=== PATIENT | female | born 1970 | race Hispanic/Latino ===

== ENCOUNTER 2018-05-18 01:08 | Emergency (ER) | payer BC ==
[2018-05-18] MEDS ORDERED: METOPROLOL TAR 50 MG TAB ONE (01:44)
[2018-05-18] MEDS ORDERED: MORPHINE 4 MG/ML SYR ONE (01:44)
[2018-05-18] MEDS ORDERED: ONDANSETRON 4 MG/2 ML VIAL ONE (01:45)
[2018-05-18 02:03] LABS: Absolute Lymphocytes (CBC) 2.7 K/uL (0.7-4.9); Absolute Monocytes 0.6 K/uL (0.1-1.3); Absolute Neutrophil 4.9 K/uL (1.8-8.0); Basophils % 0.3 % (0-1.3); Eosinophils % 1.8 % (0-4.4); Hematocrit 36.8 % (36.0-45.0); Lymphocytes % 32.1 % (15.3-44.8); MCH 30.1 pg (27.0-35.0); MCV 85.6 fL (80-100); MPV 8.8 fL (7.6-11.3); Monocytes % 7.3 % (3.3-12.3); RBC Red Blood Cell Count 4.31 M/uL (3.86-4.86)
[2018-05-18 02:18] LABS: BUN Blood Urea Nitrogen 10 mg/dL (7-18); Bicarbonate 27 mmol/L (21-32); Glucose Level 85 mg/dL (74-106); Potassium 3.5 mmol/L (3.5-5.1); Sodium Level 140 mmol/L (136-145)
[2018-05-18 02:26] LABS: Urine Blood 1+ (NEG); Urine Glucose NEGATIVE (NEG); Urine Protein NEGATIVE (NEG); Urine Specific Gravity 1.015 (1.005-1.030)
[2018-05-18] MEDS ORDERED: NA CHLORIDE 0.9% 1,000 ML ONE (02:41)
[2018-05-18] MEDS ORDERED: KETOROLAC 30 MG/ML INJ ONE (02:41)
[2018-05-18] MEDS ORDERED: DIPHENHYDRAMINE 50 MG/ML VIAL ONE (02:41)
--- NOTE | 2018-05-18 04:38 | ER ---
Nurse's Notes [facility] Name: La Mata Age: 47 yrs Sex: Female : 1970 Arrival Date: 05/18/2018 Time: 01:12 Bed 7 Private MD: Josee Porter R Diagnosis: Headache;Hypertensive heart disease Presentation: 05/18 01:24 Presenting complaint: Patient states: she has been having a headache since April 21 she bb saw her PCP and was given ibuprofen 800 mg, fluticasone spray, amox/swati 500/125 but she does not know why. Pt's headache is worse, arms feel numb today. Transition of care: patient was not received from another setting of care. Onset of symptoms was April 21, 2018. Risk Assessment: Do you want to hurt yourself or someone else? Patient reports no desire to harm self or others. Initial Sepsis Screen: Does the patient meet any 2 criteria? No. Patient's initial sepsis screen is negative. Does the patient have a suspected source of infection? No. Patient's initial sepsis screen is negative. Care prior to arrival: None. 01:24 Method Of Arrival: Ambulatory bb 01:24 Acuity: [place] 2 bb Triage Assessment: 01:27 Headache History: Denies prior headaches. bb 01:43 Pain: Pain began 1 day ago. tl2 05:00 General: Appears uncomfortable. Pain: Also complains of nausea. 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 - Social history:: Smoking status: Patient/guardian denies using tobacco, Patient/guardian denies using alcohol, street drugs. - Ebola Screening: : No symptoms or risks identified at this time. Screenin:40 Abuse screen: Denies threats or abuse. Nutritional screening: No deficits noted. tl2 Tuberculosis screening: No symptoms or risk factors identified. Fall Risk None identified. Assessment: 01:40 General: Appears in no apparent distress. uncomfortable, Behavior is calm, cooperative, tl2 appropriate for age. Pain: Complains of pain in top of head Pain radiates to base of the skull Pain currently is 9 out of 10 on a pain scale. Quality of pain is described as throbbing, numb. Neuro: Level of Consciousness is awake, alert, obeys commands, Oriented to person, place, time, situation, Fare Collector are equal bilaterally Speech is normal, Facial symmetry appears normal, Pupils are PERRLA, Reports numbness in right hand and left hand Denies blurred vision dizziness. Cardiovascular: Denies chest pain. Respiratory: Airway is patent Respiratory effort is even, unlabored, Respiratory pattern is regular, symmetrical. GI: Reports nausea. : No signs and/or symptoms were reported regarding the genitourinary system. Derm: Skin is pink, warm \T\ dry. 05:00 Reassessment: Patient and/or family updated on plan of care and expected duration. Pain tl1 level reassessed. Patient is alert, oriented x 3, equal unlabored respirations, skin warm/dry/pink. Patient denies pain at this time. Patient states feeling better. Patient states symptoms have improved. Vital Signs: 01:27 BP 197 / 99; Pulse 76; Resp 18 S; Temp 97.8(O); Pulse Ox 99% on R/A; Weight 67.13 kg bb (R); Height 5 ft. 5 in. (165.10 cm) (R); Pain 10/10; 02:43 BP 170 / 105; Pulse 59; Resp 17; Pulse Ox 100% ; Pain 7/10; tl1 03:39 BP 162 / 88; Pulse 61; Resp 18; Pulse Ox 99% on R/A; tl2 04:34 BP 120 / 79; Pulse 52; Resp 16; Pulse Ox 99% on R/A; Pain 0/10; tl2 01:27 Body Mass Index 24.63 (67.13 kg, 165.10 cm) bb ED Course: 01:12 Patient arrived in ED. al2 01:12 Josee Porter MD is Private Physician. al2 01:26 Triage completed. bb 01:27 Arm band placed on Patient placed in an exam room, on a stretcher, on pulse oximetry. bb Family accompanied patient. 01:31 Kip Gordon MD is Attending Physician. kdr 01:40 Brenda Salamanca RN is Primary Nurse. tl2 01:40 Patient has correct armband on for positive identification. Bed in low position. Call tl2 light in reach. Side rails up X 1. Adult w/ patient. 01:40 Inserted saline lock: 20 gauge in left antecubital area, using aseptic technique. Blood tl2 collected. 02:[address] via wheelchair. kw1 02:20 CT completed. Patient tolerated procedure well. Patient moved back from CT. kw1 02:22 CT Head Brain wo Cont In Process Unspecified. EDMS 04:37 Josee Porter MD is Referral Physician. kdr 05:00 No provider procedures requiring assistance completed. IV discontinued, intact, tl1 bleeding controlled, No redness/swelling at site. Pressure dressing applied. Administered Medications: 01:43 Drug: Lopressor (metoprolol TARTRATE) 50 mg Route: PO; tl2 04:02 Follow up: Response: No adverse reaction tl2 01:45 Drug: morphine 2 mg Route: IVP; Site: left antecubital; tl2 02:30 Follow up: Response: No adverse reaction; Pain is decreased tl2 01:45 Drug: Zofran 4 mg Route: IVP; Site: left antecubital; tl2 02:30 Follow up: Response: No adverse reaction; Nausea is decreased tl2 02:42 Drug: Benadryl 25 mg Route: IVP; Infused Over: 3 mins; Site: left antecubital; tl1 04:04 Follow up: Response: No adverse reaction tl2 02:42 Drug: NS 0.9% 1000 ml Route: IV; Rate: 1 bolus; Site: left antecubital; tl1 04:05 Follow up: IV Status: Completed infusion tl2 04:59 Follow up: IV Status: Completed infusion tl1 02:43 Drug: TORadol 30 mg Route: IVP; Infused Over: 2 mins; Site: left antecubital; tl1 04:04 Follow up: Response: No adverse reaction; Pain is decreased tl2 Outcome: 04:37 Discharge ordered by . kdr 04:59 Discharged to home ambulatory, with family. tl1 04:59 Condition: improved 04:59 Discharge instructions given to patient, family, Instructed on discharge instructions, follow up and referral plans. medication usage, Demonstrated understanding of instructions, follow-up care, medications, Prescriptions given X 2. 05:01 Patient left the ED. tl1 Signatures: Dispatcher [employer] EDMS Kip Gordon MD MD kdr Ballard, Brenda RN RN Viky Walker RN RN tl1 Brenda Salamanca RN RN tl2 Pooja Nettles1 Milagro Lawson
--- NOTE | 2018-05-18 04:38 | EDPHYS ---
Physician Documentation [facility] Name: La Mata Age: 47 yrs Sex: Female : 1970 Arrival Date: 05/18/2018 Time: 01:12 Bed 7 Private MD: Josee Porter R ED Physician Kip Gordon HPI: 05/18 01:40 This 47 yrs old Female presents to ER via Ambulatory with complaints of kdr Headache. 01:40 The patient complains of pain to the right frontal area, right side of the back of kdr head, right occipital area and right base of the skull. The patient describes the headache as aching, unrelenting, Sharp. Onset: The symptoms/episode began/occurred Has been ongoing and wax/wane for the last month or more but now much worse. It remains focal to the right apical parietal area with radiation down the right posterior head. Associated signs and symptoms: Pertinent positives: This patient does not have any pertinent positive signs or symptoms associated with a headache. Pertinent negatives: altered mental status, dizziness, fever, malaise, nausea, neck stiffness, paresthesias, Photophobia rash, sinus congestion, sinus tenderness, vision changes, vision loss, vomiting, weakness, vertigo. Severity of symptoms: At its worst the pain was moderate, in the emergency department the pain is unchanged. Headache History: The patient has had previous headaches and this one is similar to previous episodes, and this one is more severe than previous episodes. The symptoms are alleviated by nothing. the symptoms are aggravated by nothing. The patient has experienced similar episodes in the past, a few times, but today's symptoms are worse, more painful. The patient has not recently seen a physician. 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 - Social history:: Smoking status: Patient/guardian denies using tobacco, Patient/guardian denies using alcohol, street drugs. - Ebola Screening: : No symptoms or risks identified at this time. ROS: 01:40 Constitutional: Negative for fever, chills, and weight loss, Eyes: Negative for injury, kdr pain, redness, and discharge, Neck: Negative for injury, pain, and swelling, Cardiovascular: Negative for chest pain, palpitations, and edema, Respiratory: Negative for shortness of breath, cough, wheezing, and pleuritic chest pain, Abdomen/GI: Negative for abdominal pain, nausea, vomiting, diarrhea, and constipation, Back: Negative for injury and pain, : Negative for injury, bleeding, discharge, and swelling, MS/Extremity: Negative for injury and deformity, Skin: Negative for injury, rash, and discoloration, Psych: Negative for depression, anxiety, suicide ideation, homicidal ideation, and hallucinations, Allergy/Immunology: Negative for hives, rash, and allergies, Endocrine: Negative for neck swelling, polydipsia, polyuria, polyphagia, and marked weight changes, Hematologic/Lymphatic: Negative for swollen nodes, abnormal bleeding, and unusual bruising. 01:40 Neuro: Positive for headache, Negative for altered mental status, dizziness, hearing loss, loss of consciousness, numbness, seizure activity, speech changes, syncope, near syncope, tingling, tinnitus, tremor, visual changes, weakness. Exam: 01:40 Constitutional: This is a well developed, well nourished patient who is awake, alert, kdr and in no acute distress. Head/Face: Normocephalic, atraumatic. Eyes: Pupils equal round and reactive to light, extra-ocular motions intact. Lids and lashes normal. Conjunctiva and sclera are non-icteric and not injected. Cornea within normal limits. Periorbital areas with no swelling, redness, or edema. Neck: Trachea midline, no thyromegaly or masses palpated, and no cervical lymphadenopathy. Supple, full range of motion without nuchal rigidity, or vertebral point tenderness. No Meningismus. Chest/axilla: Normal chest wall appearance and motion. Nontender with no deformity. No lesions are appreciated. Cardiovascular: Regular rate and rhythm with a normal S1 and S2. No gallops, murmurs, or rubs. Normal PMI, no JVD. No pulse deficits. Respiratory: Lungs have equal breath sounds bilaterally, clear to auscultation and percussion. No rales, rhonchi or wheezes noted. No increased work of breathing, no retractions or nasal flaring. Abdomen/GI: Soft, non-tender, with normal bowel sounds. No distension or tympany. No guarding or rebound. No evidence of tenderness throughout. Back: No spinal tenderness. No costovertebral tenderness. Full range of motion. Skin: Warm, dry with normal turgor. Normal color with no rashes, no lesions, and no evidence of cellulitis. MS/ Extremity: Pulses equal, no cyanosis. Neurovascular intact. Full, normal range of motion. Neuro: Awake and alert, GCS 15, oriented to person, place, time, and situation. Cranial nerves II-XII grossly intact. Motor strength 5/5 in all extremities. Sensory grossly intact. Cerebellar exam normal. Normal gait. Psych: Awake, alert, with orientation to person, place and time. Behavior, mood, and affect are within normal limits. Vital Signs: 01:27 BP 197 / 99; Pulse 76; Resp 18 S; Temp 97.8(O); Pulse Ox 99% on R/A; Weight 67.13 kg bb (R); Height 5 ft. 5 in. (165.10 cm) (R); Pain 10/10; 02:43 BP 170 / 105; Pulse 59; Resp 17; Pulse Ox 100% ; Pain 7/10; tl1 03:39 BP 162 / 88; Pulse 61; Resp 18; Pulse Ox 99% on R/A; tl2 04:34 BP 120 / 79; Pulse 52; Resp 16; Pulse Ox 99% on R/A; Pain 0/10; tl2 01:27 Body Mass Index 24.63 (67.13 kg, 165.10 cm) MDM: 01:40 Data reviewed: vital signs, nurses notes, lab test result(s), radiologic studies. kdr Counseling: I had a detailed discussion with the patient and/or guardian regarding: the historical points, exam findings, and any diagnostic results supporting the discharge/admit diagnosis, lab results, radiology results, the need for outpatient follow up. 04:36 ED course: Headache resolved and BP much improved. kdr 04:37 Patient medically screened. kdr 05/18 01:38 Order name: CBC with Diff kdr 05/18 01:38 Order name: Chem 7 kdr 05/18 01:38 Order name: CBC with Automated Diff; Complete Time: 02:38 EDMS 05/18 01:38 Order name: Basic Metabolic Panel; Complete Time: 02:38 EDMS 05/18 02:07 Order name: Urine Dipstick--Ancillary (enter results); Complete Time: 02:38 rg2 05/18 02:07 Order name: Urine --Ancillary (enter results); Complete Time: 02:38 rg2 05/18 01:38 Order name: Urine Dipstick-Ancillary (obtain specimen); Complete Time: 02:03 kdr 05/18 01:38 Order name: CT Head Brain wo Cont kdr 05/18 01:38 Order name: Urine Test (obtain specimen); Complete Time: 02:03 kdr Administered Medications: 01:43 Drug: Lopressor (metoprolol TARTRATE) 50 mg Route: PO; tl2 04:02 Follow up: Response: No adverse reaction tl2 01:45 Drug: morphine 2 mg Route: IVP; Site: left antecubital; tl2 02:30 Follow up: Response: No adverse reaction; Pain is decreased tl2 01:45 Drug: Zofran 4 mg Route: IVP; Site: left antecubital; tl2 02:30 Follow up: Response: No adverse reaction; Nausea is decreased tl2 02:42 Drug: Benadryl 25 mg Route: IVP; Infused Over: 3 mins; Site: left antecubital; tl1 04:04 Follow up: Response: No adverse reaction tl2 02:42 Drug: NS 0.9% 1000 ml Route: IV; Rate: 1 bolus; Site: left antecubital; tl1 04:05 Follow up: IV Status: Completed infusion tl2 04:59 Follow up: IV Status: Completed infusion tl1 02:43 Drug: TORadol 30 mg Route: IVP; Infused Over: 2 mins; Site: left antecubital; tl1 04:04 Follow up: Response: No adverse reaction; Pain is decreased tl2 Disposition: 05/18/18 04:37 Discharged to Home. Impression: Headache, Hypertensive heart disease. - Condition is Stable. - Discharge Instructions: Hypertension, Zxsj-vy-Yxgy, General Headache Without Cause, Sibv-co-Vodc. - Prescriptions for ketorolac 10 mg Oral tablet - take 1 tablet by ORAL route every 4-6 hours As needed not to exceed 40 mg in 24hrs; 10 tablet. promethazine 25 mg Oral Tablet - take 1 tablet by ORAL route every 6 hours As needed; 10 tablet. - Medication Reconciliation Form, Thank You Letter form. - Follow up: Josee Porter MD; When: 2 - 3 days; Reason: If symptoms return, Further diagnostic work-up, Recheck today's complaints, Continuance of care, Re-evaluation by your physician. - Problem is an acute exacerbation. - Symptoms are resolved. Signatures: Dispatcher [employer] EDMS Kip Gordon MD MD kdr Ballard, Brenda, RN RN Viky Walker RN RN tl1 Brenda Salamanca RN RN tl2 Corrections: (The following items were deleted from the chart) 05:01 04:37 05/18/2018 04:37 Discharged to Home. Impression: Headache; Hypertensive heart tl1 disease. Condition is Stable. Forms are Medication Reconciliation Form, Thank You Letter, Antibiotic Education, Prescription Opioid Use. Follow up: Josee Porter; When: 2 - 3 days; Reason: If symptoms return, Further diagnostic work-up, Recheck today's complaints, Continuance of care, Re-evaluation by your physician. Problem is an acute exacerbation. Symptoms are resolved. kdr
--- NOTE | 2018-05-18 08:59 | RAD REPORT ---
EXAM DESCRIPTION: CT - Head Brain Wo Cont - 05/18/2018 6:13 am CLINICAL HISTORY: Headache for several weeks. COMPARISON: None. TECHNIQUE: Computed axial tomography of the head was obtained. IV contrast was not requested.A preli minary report was generated by [employer] and reviewed prior to this dictation All CT scans are performed using dose optimization technique as appropriate and may include automated exposure control or mA/KV adjustment according to patient size. FINDINGS: An intracranial bleed is not seen . The ventricles are normal in caliber. No extra-axial fluid collection is noted. Fluid within the sinuses/ mastoids is not seen. IMPRESSION: No acute intracranial abnormality is seen. If patient's symptoms persist MRI of the bra in would be recommended.
== END 2018-05-18 05:01 | disposition home or self-care (01) ==
LOC: ER 01:08
DX: I11.9 Hypertensive heart disease without heart failure (principal)
CPT/HCPCS: 36415; 70450; 80048; 81003; 81025; 85025; 96361; 96374; 96375; 99284; J2405; J7030

== ENCOUNTER 2024-05-02 00:26 | Emergency (ER) | payer OTHER ==
--- OUTSIDE RECORDS SUMMARY | 2024-05-02 00:30 | XMS REPORT | Continuity of Care Document ---
Author Name Unknown Address [address] [place] [address] [facility] thconnect Address 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 Role Phone BIBIANA TRINOARTURDAGO Primary Care Physician Unavailable CHERYL STEWART Attending Clinician Unavailable Cheryl Stewart MD Attending Clinician [phone] Only, Adc Test Attending Clinician Unavailable Osiel Pollock MD Attending Clinician Paulo Chaudhry MD Attending Clinician [phone] Doctor Unassigned, [place] Attending Clinician U navailable Payers Payer Name Policy Type Policy Number Effective Date Expirati on Date Source [facility] [id number] 2020 00:00:00 [facility] [id number] 2017 00:00:00 Allergies, Adverse Reactions, Alerts Allergy Name Allergy Type Status Severity Reaction(s) Onset Date Inactive Date Treating Clinician Comments Source NO KNOWN ALLERGIE S Drug Class Active [facility] Social History Social Habit Start Date Stop Date Quantity Comments Source History SDOH Alcohol Std Drinks [facility] History SDOH Alcohol Binge [facility] History SDOH Alcohol Comment [facility] Tobacco use and exposure 2020-10-20 00:00:00 2020-10-20 00:00:00 Never used [facility] Alcohol intake 2020-10-20 00:00:00 2020-10-20 00:00:00 Lifetime non-drinker (finding) [facility] History SDOH Alcohol Frequency 2020-10-20 00:00:00 2020-10-20 00:00:00 1 [facility] Sex Ass[birth year] At 1970 00:00:00 1970 00:00:00 [facility] Smoking Status Start Date Stop Date Source Never smoker [facility] Medications Ordered Medication Name Filled Medication Name Start Date Stop Date Current Medication? Ordering Clinician Indication Dosage Frequency Signature (SIG) Comments Components Source Omeprazole 20 mg tablet 2019-11 10:44: 24 Yes Take by mouth. [facility] estradioL 0.01 % (0.1 mg/gram) vaginal cream 2019-11 00:00: 00 Yes [id number] 1g Insert 1 g into vagina daily. After 2 weeks, then can use twice weekly. [facility] loratadine 10 mg tablet 08-03 00:00: 00 Yes 10mg Take 10 mg by mouth daily. [facility] triamterene -hydrochlor othiazid 37.5-25 mg tablet 08-03 00:00: 00 Yes 1{tbl} Take 1 tablet by mouth daily. [facility] Encounters Start Date/Time End Date/Time Encounter Type Admission Type Attending Clinicians Care Facility Care Department Encounter ID Source 2024-02-26 13:58:34 2024-02-26 13:58:34 Outpatient [facility] [id number] Noel Narayanan 2023-11-29 09:11:18 2023-11-29 09:11:18 Outpatient [facility] [id number] Noel Narayanan 2023-02-19 14:43:46 2023-02-19 14:43:46 Outpatient [facility] [id number] Noel Narayanan 2021-10-20 10:30:00 2021-10-20 10:30:00 Outpatient CHERYL PETERSON [facility] [id number] [facility] 2021-10-20 10:30:00 2021-10-20 10:30:00 Outpatient CHERYL PETERSON [facility] [id number] [facility] 2021-09-28 00:00:00 2021-09-28 00:00:00 Telephone Cheryl Stewart [facility] 1.0.114 [id number] [facility] 2021-03-01 13:32:00 2021-03-01 13:47:00 Laboratory Only Only, Adc Test Osiel Pollock [facility] 1.20.114 [id number] [facility] 2021-03-01 13:30:00 2021-03-01 13:30:00 Outpatient R [facility] [id number] [facility] 2021-03-01 00:00:00 2021-03-01 00:00:00 Letter (Out) Paulo Chaudhry [facility] 1.20.114 [id number] [facility] 2021-01-28 00:00:00 2021-01-28 00:00:00 Orders Only Doctor Unassigned, [place] [facility] 1.20.114 [id number] [facility] 2020-10-20 10:00:00 2020-10-20 10:00:00 Outpatient R CHERYL STEWART [facility] [id number] [facility] Results Test Description Test Time Test Comments Results Result Co mments Source VITAMIN [id number] 13:43:37* Test Item Value Reference Range Interpretation Comme nts VITAMIN B-12 (test code = 2840) >2000 PG/ML 200-950 H TSH REFLEX TO FREE [id number] 13:43:37* Test Item Value Reference Range Interpretation Comme nts TSH REFLEX TO FREE T4 (test code = 2834) 3.160 UIU/ML 0.400-4.100 LIPID [id number] 03:47:52* Test Item Value Reference Range Interpretation Comme nts CHOLESTEROL (test code = 2210) 258 MG/DL <200 H TRIGLYCERIDES (test code = 2232) 205 MG/DL <150 H HDL CHOLESTEROL (test code = 2220) 54 MG/DL >39 CALC LDL CHOL (test code = 2237) 167 MG/DL <100 H NOTE: CALCULATED LDL IS BASED ON MITCHEL-FELDER METHOD WHICHINCLUDES ADJUSTABLE TRIGLYCERIDE:VLDL CHOLESTEROL RATIO.THIS FACTOR VARIES BY MEASURED TRIGLYCERIDE AND NON-HDLCHOLESTEROL CONCENTRATIONS WITH INCREASED CALCULATED LDL SEENIN HIGHER TRIGLYCERIDE OR LOWER NON-HDL SPECIMENS. FOR MOREINFORMATION, SEE CLIENT ANNOUNCEMENT AT [email or web address] [email or web address] RATIO LDL/HDL (test code = 2238) 3.09 RATIO <3.22 COMPREHENSIVE METABOLIC [id number] 03:47:52* Test Item Value Reference Range Interpretation Comme nts GLUCOSE (test code = 2217) 86 MG/DL 70-99 BUN (test code = 2207) 12 MG/DL 6-20 CREATININE (test code = 2214) 0.56 MG/DL 0.60-1.30 L eGFR (2020 CKD-EPI) (test code = 98231) 110 ML/MIN/1.73 >60 CALC BUN/CREAT (test code = 2235) 21 RATIO 6-28 SODIUM (test code = 223) 141 MEQ/L 133-146 POTASSIUM (test code = 2228) 3.3 MEQ/L 3.5-5.4 L CHLORIDE (test code = 2215) 100 MEQ/L 95-107 CARBON DIOXIDE (test code = 2206) 27 MEQ/L 19-31 CALCIUM (test code = 2209) 10.1 MG/DL 8.5-10.5 PROTEIN, TOTAL (test code = 222) 7.5 G/DL 6.1-8.3 ALBUMIN (test code = 1) 4.7 G/DL 3.5-5.2 CALC GLOBULIN (test code = 2240) 2.8 G/DL 1.9-3.7 CALC A/G RATIO (test code = 2234) 1.7 RATIO 1.0-2.6 BILIRUBIN, TOTAL (test code = 2206) 0.2 MG/DL See_Comment [Automated me ssage] The system which generated this result transmitted reference range: <=1.2. The reference range was not used to interpret this result as normal/abnormal. ALKALINE PHOSPHATASE (test code = 4) 105 U/L 40-132 AST (test code = 2218) 16 U/L 9-40 ALT (test code = 2219) 16 U/L 5-40 [id number] 03:38:30* Test Item Value Reference Range Interpretation Comme nts MAGNESIUM (test code = 2226) 2.0 MG/DL 1.6-2.6 CBC W/AUTO DIFF WITH [id number] 02:37:39* Test Item Value Reference Range Interpretation Comme nts WBC (test code = 1001) 7.3 K/UL 3.5-11.0 RBC (test code = 1002) 4.34 M/UL 3.80-5.40 HEMOGLOBIN (test code = 1003) 11.5 G/DL 11.5-15.5 HEMATOCRIT (test code = 1004) 34.3 % 34.0-45.0 MCV (test code = 1005) 79.0 fL 80.0-99.0 L MCH (test code = 1006) 26.5 PG 25.0-33.0 MCHC (test code = 1007) 33.5 G/DL 31.0-36.0 RDW (test code = 1038) 14.6 % 11.5-15.0 NEUTROPHILS (test code = 1008) 49.4 % LYMPHOCYTES (test code = 1010) 41.8 % MONOCYTES (test code = 1011) 6.2 % EOSINOPHILS (test code = 1012) 1.8 % BASOPHILS (test code = 1013) 0.7 % IMMATURE GRANULOCYTES (test code = 1036) 0.1 % NUCLEATED RBCS (test code = 1065) 0.0 /100 WBC'S See_Comment [Automated messa ge] The system which generated this result transmitted reference range: 0.0. The reference range was not used to interpret this result as normal/abnormal. PLATELET COUNT (test code = 1015) 374 K/UL 130-400 ABSOLUTE NEUTROPHILS (test code = 1066) 3.58 K/UL 1.50-7.50 ABSOLUTE LYMPHOCYTES (test code = 1067) 3.03 K/UL 1.00-4.00 ABSOLUTE MONOCYTES (test code = 1068) 0.45 K/UL 0.20-1.00 ABSOLUTE EOSINOPHILS (test code = 1040) 0.13 K/UL 0.00-0.50 ABSOLUTE BASOPHILS (test code = 1069) 0.05 K/UL 0.00-0.20 ABS IMMATURE GRANULOCYTES (test code = 1020) 0.01 K/UL 0.00-0.10 ABS NUCLEATED RBCS (test code = 09090) 0.00 K/UL 0.00-0.11
[2024-05-02 00:58] LABS: Absolute Eosinophils 0.1 K/uL (0-0.5); Absolute Monocytes 0.5 K/uL (0.1-1.3); Basophils % 0.4 % (0-1.3); Eosinophils % 1.1 % (0-4.4); Hematocrit 36.9 % (36.0-45.0); Hemoglobin 12.2 g/dL (12.0-15.0); Lymphocytes % 45.5 % (15.3-44.8); MCH 26.7 pg (27.0-35.0); MCHC 32.9 g/dL (32.0-36.0); MPV 8.4 fL (7.6-11.3); Monocytes % 7.2 % (3.3-12.3); Neutrophils % 45.8 % (41.7-73.7); Nucleated Red Blood Cells % 0.1 % (0-0); Platelets 400 thou/uL (152-406); RBC Red Blood Cell Count 4.56 M/uL (3.86-4.86)
[2024-05-02 01:04] LABS: PT Prothrombin Time 12.1 SECONDS (9.4-12.5); Protime INR 1.1
[2024-05-02 01:26] LABS: ALT/SGPT 30 U/L (13-56); AST/SGOT 15 U/L (15-37); Albumin 4.1 g/dL (3.4-5.0); Alkaline Phosphatase 104 U/L (45-117); Anion Gap 10.9 mEq/L (5.0-15.0); BUN Blood Urea Nitrogen 12 mg/dL (7-18); Bicarbonate 27 mEq/L (21-32); Bilirubin Direct < 0.2 mg/dL (0-0.2); Bilirubin Indirect, Calculated 0.2 mg/dL (0.2-0.8); Bilirubin Total 0.4 mg/dL (0.2-1.0); Globulin 4.3 g/dL (2.3-3.5); Glomerular Filtration Rate 106 ml/min (=/>90); Glucose Level 100 mg/dL (74-106); Magnesium 2.5 mg/dL (1.6-2.4); NT PRO-BNP 38 pg/mL (<125); Potassium 2.9 mEq/L (3.5-5.1); Protein, Total 8.4 g/dL (6.4-8.2); Sodium Level 139 mEq/L (136-145); Troponin High Sensitivity 3.5 pg/mL (<58.9)
--- NOTE | 2024-05-02 03:28 | ER ---
Nurse's Notes [facility] Name: La Mata Age: 53 yrs Sex: Female : 1970 Arrival Date: 05/02/2024 Time: 00:26 Bed 5 Private MD: Diagnosis: Essential (primary) hypertension Presentation: 05/02 00:39 Chief complaint: Patient states: high BP, weakness, arms tingling since 2300. lg3 Coronavirus screen: Client denies travel out of the [place] in the last 14 days. At this time, the client does not indicate any symptoms associated with coronavirus-19. Ebola Screen: No symptoms or risks identified at this time. Initial Sepsis Screen: Does the patient meet any 2 criteria? No. Patient's initial sepsis screen is negative. Does the patient have a suspected source of infection? No. Patient's initial sepsis screen is negative. Risk Assessment: Do you want to hurt yourself or someone else? Patient reports no desire to harm self or others. Onset of symptoms was May 01, 2024. 00:39 Method Of Arrival: Wheelchair lg3 00:39 Acuity: [place] 3 lg3 Triage Assessment: 00:40 General: Appears in no apparent distress. uncomfortable, Behavior is calm, cooperative. lg3 Pain: Denies pain. EENT: No deficits noted. No signs and/or symptoms were reported regarding the EENT system. Neuro: [place] Agitation-Sedation Scale (RASS): 0 - Alert and Calm Level of Consciousness is awake, alert, obeys commands, Oriented to person, place, time, situation, Reports numbness in right arm and left arm weakness. Cardiovascular: No deficits noted. Capillary refill < 3 seconds Clubbing of nail beds is absent JVD is absent Patient's skin is warm and dry. Rhythm is sinus rhythm. Respiratory: No deficits noted. Airway is patent Respiratory effort is even, unlabored, Respiratory pattern is regular, symmetrical. GI: No deficits noted. No signs and/or symptoms were reported involving the gastrointestinal system. : No deficits noted. No signs and/or symptoms were reported regarding the genitourinary system. Derm: No deficits noted. No signs and/or symptoms reported regarding the dermatologic system. Skin is intact, is healthy with good turgor, Skin is dry, Skin is normal, Skin temperature is warm. Musculoskeletal: No deficits noted. Circulation, motion, and sensation intact. Range of motion: intact in all extremities. 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 - Infectious Disease History:: Denies. - Social history:: Smoking status: Patient denies any tobacco usage or history of. Patient/guardian denies using alcohol, street drugs. - Family history:: not pertinent. Screenin:59 [facility] ED Fall Risk Assessment (Adult) History of falling in the last 3 months, tm6 including since admission No falls in past 3 months (0 pts) Confusion or Disorientation No (0 pts) Intoxicated or Sedated No (0 pts) Impaired Gait No (0 pts) Mobility Assist Device Used No (0 pt) Altered Elimination No (0 pt) Score/Fall Risk Level 0 - 2 = Low Risk Oriented to surroundings, Maintained a safe environment, Educated pt \T\ family on fall prevention, incl call for assistance when getting out of bed. Abuse screen: Denies threats or abuse. Denies injuries from another. Nutritional screening: No deficits noted. Tuberculosis screening: No symptoms or risk factors identified. Assessment: 00:59 General: Appears in no apparent distress. Behavior is calm, cooperative. Pain: Denies tm6 pain. Neuro: Level of Consciousness is awake, alert, obeys commands, Oriented to person, place, time, situation, Reports paresthesias in right arm and left arm weakness general. Cardiovascular: Reports high blood pressure at home Patient's skin is warm and dry. Rhythm is sinus rhythm. Respiratory: Airway is patent Respiratory effort is even, unlabored, Respiratory pattern is regular, symmetrical. GI: Abdomen is flat, non-distended. GI: No signs and/or symptoms were reported involving the gastrointestinal system. : No signs and/or symptoms were reported regarding the genitourinary system. EENT: No signs and/or symptoms were reported regarding the EENT system. Derm: No signs and/or symptoms reported regarding the dermatologic system. Musculoskeletal: No signs and/or symptoms reported regarding the musculoskeletal system. 02:03 Reassessment: Patient appears in no apparent distress at this time. Patient and/or jb4 family updated on plan of care and expected duration. Pain level reassessed. Patient is alert, oriented x 3, equal unlabored respirations, skin warm/dry/pink. 02:52 Reassessment: Patient states feeling better. tm6 Vital Signs: 00:39 BP 184 / 96; Pulse 71; Resp 16 S; Temp 97.8(O); Pulse Ox 96% on R/A; Weight 64.86 kg lg3 (R); Height 5 ft. 5 in. (R); 02:52 BP 148 / 83; Pulse 63; Resp 14; Pulse Ox 99% on R/A; Pain 0/10; tm6 03:27 BP 151 / 84; Pulse 71; Resp 16; Temp 97.8(TE); Pulse Ox 100% on R/A; Pain 0/10; tm6 00:39 Body Mass Index 23.80 (64.86 kg, 165.1 cm) lg3 02:52 Pain Scale: Adult tm6 03:27 Pain Scale: Adult tm6 [place] Coma Score: 03:58 Eye Response: spontaneous(4). Motor Response: obeys commands(6). Verbal Response: sp4 oriented(5). Total: 15. ED Course: 00:30 Patient arrived in ED. jj6 00:31 Chago Marti MD is Attending Physician. sp4 00:33 Vern Alonzo, RN is Primary Nurse. tm6 00:40 Triage completed. lg3 00:40 Arm band placed on right wrist. lg3 00:55 Basic Metabolic Panel Sent. tm6 00:55 CBC with Diff Sent. tm6 00:55 LFT's Sent. tm6 00:55 Magnesium Sent. tm6 00:55 NT PRO-BNP Sent. tm6 00:55 PT-INR Sent. tm6 00:55 Troponin HS Sent. tm6 00:55 EKG done, by ED staff, reviewed by Chago Marti MD. tm6 00:59 Patient has correct armband on for positive identification. Bed in low position. Call tm6 light in reach. Side rails up X 1. Provided Education on: use of call gurrola. Client placed on continuous cardiac and pulse oximetry monitoring. NIBP monitoring applied. vehicle monitor technician on. Pulse ox on. NIBP on. Door closed. Noise minimized. Warm blanket given. Pillow given. 00:59 Inserted saline lock: 22 gauge in left antecubital area, using aseptic technique. tm6 01:08 XRAY Chest (1 view) In Process Unspecified. EDMS 01:44 CT Head Brain wo Cont In Process Unspecified. EDMS 02:52 No provider procedures requiring assistance completed. tm6 03:27 IV discontinued, intact, bleeding controlled, No redness/swelling at site. Pressure tm6 dressing applied. Administered Medications: No medications were administered Medication: 00:59 VIS not applicable for this client. tm6 Outcome: 03:27 Condition: stable tm6 03:28 Discharge ordered by . sp4 03:32 Discharged to home ambulatory, jb4 03:32 Condition: stable 03:32 Discharge instructions given to patient, Instructed on discharge instructions, follow up and referral plans. Demonstrated understanding of instructions, follow-up care, 03:32 Patient left the ED. jb4 Signatures: Dispatcher [employer] EDJayy Riley, RN RN jb4 Leela Cornejo, RN RN lg3 Kathy Rankin6 Chago Marti MD MD sp4 Vern Alonzo RN RN tm6
--- NOTE | 2024-05-02 03:28 | EDPHYS ---
Physician Documentation [facility] Name: La Mata Age: 53 yrs Sex: Female : 1970 Arrival Date: 05/02/2024 Time: 00:26 Bed 5 Private MD: ED Physician Chago Marti HPI: 05/02 00:32 This 53 yrs old Female presents to ER via Unassigned with complaints of High sp4 Blood Pressure. 03:58 Patient presents with complaint of elevated blood pressure and some headache. Patient sp4 states she is on triamterene HCTZ. PRINCIPAL ARCHITECT: 00:40 LMP N/A - uterine ablasion, Not lg3 Historical: - Allergies: 00:40 No Known Allergies; lg3 - Home Meds: 00:40 unknown HTN medication [Active]; lg3 - PMHx: 00:40 Hypertensive disorder; high cholesterol; lg3 - PSHx: 00:40 tummy tuck; uterine ablasian; lg3 - Immunization history:: Adult Immunizations up to date, Client reports receiving the 2nd dose of the Covid vaccine. - Infectious Disease History:: Denies. - Social history:: Smoking status: Patient denies any tobacco usage or history of. Patient/guardian denies using alcohol, street drugs. - Family history:: not pertinent. ROS: 03:58 Constitutional: Negative for fever, chills, and weight loss, positive hypertension and sp4 positive headache. 03:58 All other systems are negative, Exam: 03:58 Constitutional: This is a well developed, well nourished patient who is awake, alert, sp4 and in no acute distress. Head/Face: Normocephalic, atraumatic. Eyes: Pupils equal round and reactive to light, extra-ocular motions intact. Lids and lashes normal. Conjunctiva and sclera are not injected. Cornea within normal limits. Periorbital areas with no swelling, redness, or edema. ENT: Nares patent. No nasal discharge, no septal abnormalities noted. Tympanic membranes are normal and external auditory canals are clear. Oropharynx with no redness, swelling, or masses, exudates, or evidence of obstruction, uvula midline. Mucous membranes moist. Neck: Trachea midline, no thyromegaly or masses palpated, and no cervical lymphadenopathy. Supple, full range of motion without nuchal rigidity, or vertebral point tenderness. Chest/axilla: Normal chest wall appearance and motion. Nontender with no deformity. No lesions are appreciated. Cardiovascular: Regular rate and rhythm with a normal S1 and S2. No gallops, murmurs, or rubs. Normal PMI, no JVD. No pulse deficits. Respiratory: Lungs have equal breath sounds bilaterally, clear to auscultation and percussion. No rales, rhonchi or wheezes noted. No increased work of breathing, no retractions or nasal flaring. Abdomen/GI: Soft, with normal bowel sounds. No distension or tympany. No guarding or rebound. No evidence of tenderness throughout. Back: No spinal tenderness. No costovertebral tenderness. Skin: Warm, dry with normal turgor. Normal color with no rashes, no lesions, and no evidence of cellulitis. MS/ Extremity: Pulses equal, no cyanosis. Neurovascular intact. Full, normal range of motion. Neuro: Awake and alert, GCS 15, oriented to person, place, time, and situation. Cranial nerves II-XII grossly intact. Motor strength 5/5 in all extremities. Sensory grossly intact. Psych: Awake, alert, with orientation to person, place and time. Behavior, mood, and affect are within normal limits 03:58 ECG was reviewed by the Attending Physician. EKG at 0040 normal sinus rhythm at a rate of 74. Vital Signs: 00:39 BP 184 / 96; Pulse 71; Resp 16 S; Temp 97.8(O); Pulse Ox 96% on R/A; Weight 64.86 kg lg3 (R); Height 5 ft. 5 in. (R); 02:52 BP 148 / 83; Pulse 63; Resp 14; Pulse Ox 99% on R/A; Pain 0/10; tm6 03:27 BP 151 / 84; Pulse 71; Resp 16; Temp 97.8(TE); Pulse Ox 100% on R/A; Pain 0/10; tm6 00:39 Body Mass Index 23.80 (64.86 kg, 165.1 cm) lg3 02:52 Pain Scale: Adult tm6 03:27 Pain Scale: Adult tm6 [place] Coma Score: 03:58 Eye Response: spontaneous(4). Motor Response: obeys commands(6). Verbal Response: sp4 oriented(5). Total: 15. MDM: 03:24 ED course: EXAM DESCRIPTION: Chest Single View RadLex: XR CHEST 1 VIEW CLINICAL sp4 HISTORY: 53 years Female, CHEST PAIN COMPARISON: None. FINDINGS: Single portable AP upright view of the chest. Trachea is midline. Normal size of the cardiac silhouette. No pulmonary vascular congestion. No focal consolidation, pleural effusion, or pneumothorax. No acute osseous abnormality. IMPRESSION: No acute radiographic abnormality. . ED course: Two PROCEDURE: Head Brain Wo Cont CLINICAL HISTORY: HEADACHE TECHNIQUE: Contiguous axial CT images obtained through the brain without IV contrast. Coronal and sagittal reformatted images were provided. This exam was performed according to our departmental dose-optimization program, which includes automated exposure control, adjustment of the mA and/or kV according to patient size and/or use of iterative reconstruction technique. COMPARISON: May 2018 FINDINGS: Brain: No focal mass effect. Spaulding-white matter differentiation is within normal limits. No hemorrhage. Ventricles: No ventriculomegaly or midline shift. Extra-axial spaces: No extra-axial collection or hemorrhage. Paranasal sinuses and mastoid air cells: Well-aerated Bones: Unremarkable Soft tissues: Unremarkable IMPRESSION: No acute intracranial or extra-axial abnormality. . 03:28 Patient medically screened. sp4 03:58 Differential diagnosis: hypertensive crisis, Malignant HTN, CVA, intracerebral sp4 hemorrhage. Data reviewed: vital signs, nurses notes, EMS record, lab test result(s), EKG, radiologic studies, CT scan, plain films. Consideration of Admission/Observation Escalation of care including admission/observation considered. ED course: Blood pressure is stable and reasonably low. Patient stable for discharge home. She was advised to continue her current medications.. 05/02 00:32 Order name: Basic Metabolic Panel; Complete Time: 03:22 sp4 05/02 00:32 Order name: CBC with Diff; Complete Time: 03:22 sp4 05/02 00:32 Order name: LFT's; Complete Time: 03:22 sp4 05/02 00:32 Order name: Magnesium; Complete Time: 03:22 sp4 05/02 00:32 Order name: NT PRO-BNP; Complete Time: 03:22 sp4 05/02 00:32 Order name: PT-INR; Complete Time: 03:22 sp4 05/02 00:32 Order name: Troponin HS; Complete Time: 03:22 sp4 05/02 00:32 Order name: XRAY Chest (1 view) 4 05/02 01:18 Order name: CT Head Brain wo Cont sp4 05/02 00:32 Order name: EKG; Complete Time: 00:33 sp4 05/02 00:32 Order name: Cardiac monitoring; Complete Time: 00:55 sp4 05/02 00:32 Order name: EKG - Nurse/Tech; Complete Time: 00:54 sp4 05/02 00:32 Order name: IV Saline Lock; Complete Time: 00:54 sp4 05/02 00:32 Order name: Labs collected and sent; Complete Time: 00:55 sp4 05/02 00:32 Order name: O2 Per Protocol; Complete Time: 00:55 sp4 05/02 00:32 Order name: O2 Sat Monitoring; Complete Time: 00:55 sp4 EC:58 Rate is 74 beats/min. Rhythm is regular, Sinus Rhythm. QRS [place] is Normal. [place] interval sp4 is normal. QRS interval is normal. QT interval is normal. No Q waves. T waves are Normal. No ST changes noted. Clinical impression: Normal ECG. Interpreted by me. Reviewed by me. Administered Medications: No medications were administered Disposition Summary: 05/02/24 03:28 Discharge Ordered Problem: new sp4 Symptoms: have improved sp4 Condition: Stable sp4 Diagnosis - Essential (primary) hypertension sp4 Followup: sp4 - With: Private Physician - When: 7 - 10 days - Reason: Recheck today's complaints Discharge Instructions: - Discharge Summary Sheet sp4 - Hypertension, Adult, [id number] sp4 Forms: - Patient Portal Instructions sp4 Signatures: Dispatcher [employer] Leela Sanchez RN RN lg3 Chago Marti MD MD sp4 Corrections: (The following items were deleted from the chart) 00:33 00:33 BASIC METABOLIC PANEL+C.LAB.BRZ ordered. EDMS EDMS 00:33 00:33 CBC+H.LAB.BRZ ordered. EDMS EDMS 00:33 00:33 HEPATIC FUNCTION+C.LAB.BRZ ordered. EDMS EDMS 00:33 00:33 MAGNESIUM+C.LAB.BRZ ordered. EDMS EDMS 00:33 00:33 PROBNP+C.LAB.BRZ ordered. EDMS EDMS 00:33 00:33 PROTIME (+INR)+COAG.LAB.BRZ ordered. EDMS EDMS 00:33 00:33 Troponin High Sensitivity+C.LAB.BRZ ordered. EDMS EDMS
[2024-05-02 03:47] VITALS: BP 151/84; TEMP 97.8; O2SAT 100
--- NOTE | 2024-05-02 10:18 | RAD REPORT ---
EXAM DESCRIPTION: RAD - Chest Single View - 05/02/2024 1:06 am CLINICAL HISTORY: 53 years Female, CHEST PAIN COMPARISON: None. FINDINGS: Single portable AP upright view of the chest. Trachea is midline. Normal size of the cardi ac silhouette. No pulmonary vascular congestion. No focal consolidation, pleural effusion, or pneumot horax. No acute osseous abnormality. IMPRESSION: No acute radiographic abnormality. Electronically signed by: Kimberly Fuentes MD 05/02/2024 01:36 AM CDT Due to temporary technical issues with the PACS/Fluency reporting system, reports are being signed by the in house radiologist without review as a courtesy to ensure prompt reporting. The interpreting r adiologist is fully responsible for the content of the report.
--- NOTE | 2024-05-02 10:20 | RAD REPORT ---
EXAM DESCRIPTION: CT - Head Brain Wo Cont - 05/02/2024 6:35 am CLINICAL HISTORY: HEADACHE TECHNIQUE: Contiguous axial CT images obtained through the brain without IV contrast. Coronal and sa gittal reformatted images were provided. This exam was performed according to our departmental dose-optimization program, which includes autom ated exposure control, adjustment of the mA and/or kV according to patient size and/or use of iterati ve reconstruction technique. COMPARISON: May 2018 FINDINGS: Brain: No focal mass effect. Spaulding-white matter differentiation is within normal limits. No hemorrhage. Ventricles: No ventriculomegaly or midline shift. Extra-axial spaces: No extra-axial collection or hemorrhage. Paranasal sinuses and mastoid air cells: Well-aerated Bones: Unremarkable Soft tissues: Unremarkable IMPRESSION: No acute intracranial or extra-axial abnormality. Electronically signed by: John Morton MD 05/02/2024 02:53 AM CDT RP Due to temporary technical issues with the PACS/Fluency reporting system, reports are being signed by the in house radiologist without review as a courtesy to ensure prompt reporting. The interpreting r adiologist is fully responsible for the content of the report.
--- NOTE | 2024-05-04 13:33 | EKG ---
Test Date: 2024-05-02 Test Time: 00:40:21 Baby Sitter: SHIV MEASUREMENT RESULTS: Intervals: Rate: 74 [place]: 156 QRSD: 80 QT: 386 QTc: 428 [place]: P: 36 [place]: 156 QRS: 24 T: 64 INTERPRETIVE STATEMENTS: Normal sinus rhythm Normal ECG No previous ECG available for comparison Electronically Signed On 05-04-24 13:28:15 CDT by Duarte Valdez
== END 2024-05-02 03:32 | disposition home or self-care (01) ==
LOC: ER 00:26
DX: I10 Essential (primary) hypertension (principal); E78.00 Pure hypercholesterolemia, unspecified; Z79.899 Other long term (current) drug therapy
CPT/HCPCS: 36415; 70450; 71045; 80048; 80076; 83735; 83880; 84484; 85025; 85610; 93005; 99284

== ENCOUNTER 2025-07-08 20:31 | Emergency (ER) | payer OTHER ==
--- OUTSIDE RECORDS SUMMARY | 2025-07-08 20:37 | XMS REPORT | Continuity of Care Document ---
Author Name Unknown Address [address] [facility] [address] [place] [address] Organization [facility] [place] Address [address] [facility] [address] [place] [address] Care Team Providers Care District Medical Examiner Name Role Phone DOMONIQUERAMIROJACINTORITIKA Primary Care Physician Unavailable PATRICIA STEWART Attending Clinician Unavailable Patricia Stewart MD Attending Clinician [phone] Only, Adc Test Attending Clinician Unavailable Osiel Pollock MD Attending Clinician Paulo Chaudhry MD Attending Clinician [phone] Doctor Unassigned, [place] Attending Clinician U navailable Payers Payer Name Policy Type Policy Number Effective Date Expirati on Date Source [facility] [id number] 2020 00:00:00 [facility] [id number] 2017 00:00:00 Allergies, Adverse Reactions, Alerts Allergy Name Allergy Type Status Severity Reaction(s) Onset Date Inactive Date Treating Clinician Comments Source NO KNOWN ALLERGIE S Drug Class Active [facility] Social History Social Habit Start Date Stop Date Quantity Comments Source History SDOH Alcohol Std Drinks [facility] History SDOH Alcohol Binge [facility] History SDOH Alcohol Comment [facility] Tobacco use and exposure 2020-10-20 00:00:00 2020-10-20 00:00:00 Never used [facility] Alcohol intake 2020-10-20 00:00:00 2020-10-20 00:00:00 Lifetime non-drinker (finding) [facility] History SDOH Alcohol Frequency 2020-10-20 00:00:00 2020-10-20 00:00:00 1 [facility] Sex Assigned At 1970 00:00:00 1970 00:00:00 [facility] Smoking Status Start Date Stop Date Source Never smoker [facility] Medications Ordered Medication Name Filled Medication Name Start Date Stop Date Current Medication? Ordering Clinician Indication Dosage Frequency Signature (SIG) Comments Components Source loratadine 10 mg tablet - 00:00: 00 Yes mg Noel Narayanan atorvastati n 20 mg tablet 1-13 00:00: 00 Yes 1mg Noel Narayanan potassium chloride ER 10 mEq tablet,exte nded release 1- 00:00: 00 Yes 1mEq Noel Narayanan triamterene 37.5 mg-hydrochl orothiazide 25 mg capsule 1- 00:00: 00 Yes 1mg Noel Narayanan atorvastati n 20 mg tablet 2023-11 0-17 00:00: 00 Yes 1mg Noel Narayanan potassium chloride ER 10 mEq tablet,exte nded release 2023-11 0-17 00:00: 00 Yes 1mEq Noel Narayanan triamterene 37.5 mg-hydrochl orothiazide 25 mg capsule 2023-11 0-17 00:00: 00 Yes 1mg Noel Narayanan Macrobid 100 mg capsule 2023-11 0-17 00:00: 00 Yes 1mg Noel Narayanan atorvastati n 20 mg tablet 8-16 00:00: 00 Yes 1mg Noel Narayanan potassium chloride ER 10 mEq tablet,exte nded release 8-16 00:00: 00 Yes 1mEq Noel Narayanan triamterene 37.5 mg-hydrochl orothiazide 25 mg capsule 0 8-16 00:00: 00 Yes 1mg Noel Narayanan atorvastati n 20 mg tablet 8-05 00:00: 00 Yes 1mg Noel Narayanan triamterene 37.5 mg-hydrochl orothiazide 25 mg capsule 7-18 00:00: 00 Yes mg Noel Narayanan potassium chloride ER 10 mEq tablet,exte nded release -18 00:00: 00 Yes mEq Noel Narayanan triamterene 37.5 mg-hydrochl orothiazide 25 mg capsule 4-16 00:00: 00 Yes mg Noel Narayanan triamterene 37.5 mg-hydrochl orothiazide 25 mg capsule 4-14 00:00: 00 Yes mg Noel Narayanan triamterene 37.5 mg-hydrochl orothiazide 25 mg capsule 4-13 00:00: 00 Yes mg Noel Narayanan Bromfed DM 2 mg-30 mg-10 mg/5 mL oral syrup 3-18 00:00: 00 Yes 10mg/5 mL Noel Narayanan TAKE 10 ML BY MOUTH THREE TIMES A DAY NEEDED 3-18 00:00: 00 Yes Noel Narayanan potassium chloride ER 10 mEq tablet,exte nded release 3-15 00:00: 00 Yes mEq Noel Narayanan TAKE 1 TABLET DAILY. -18 00:00: 00 Yes 10 Noel Narayanan TAKE 1 TABLET DAILY. 18 00:00: 00 Yes 10 Noel Narayanan TAKE 1 CAPSULE EVERY MORNING. 11-29 00:00: 00 Yes [id number] Noel Narayanan SPRAY ONE (1) SPRAY IN EACH NOSTRIL ONCE DAILY. 11-29 00:00: 00 Yes Noel Narayanan TAKE ONE (1) TABLET BY MOUTH AT BEDTIME. 18 00:00: 00 Yes Noel Narayanan USE 1 SPRAY IN EACH NOSTRIL ONCE DAILY. 06-05 00:00: 00 Yes 50 Noel Narayanan TAKE 1 CAPSULE EVERY MORNING. 06-05 00:00: 00 02-25 00:00 :00 No [id number] Noel Narayanan TAKE 1 TABLET DAILY. 06-05 00:00: 00 02-25 00:00 :00 No 10 Noel Narayanan TAKE 1 CAPSULE EVERY MORNING. 05-29 00:00: 00 02-25 00:00 :00 No [id number] Noel Narayanan TAKE 1 TABLET DAILY. 2023-0 7-18 00:00: 00 02-25 00:00 :00 No 10 Noel Narayanan TAKE 1 TABLET DAILY. 4-12 00:00: 00 02-25 00:00 :00 No 10 Noel Narayanan POTASSIUM CHLORIDE ER 10 MEQ TBCR 4-11 00:00: 00 Yes Noel Narayanan TAKE 1 TABLET BY MOUTH 3 TIMES DAILY 2-16 00:00: 00 02-25 00:00 :00 No [id number] Noel Narayanan TAKE 1 TABLET DAILY. 2-16 00:00: 00 02-25 00:00 :00 No 10 Noel Narayanan 1 TABLET AT BEDTIME NEEDED FOR DIZZINESS 2-16 00:00: 00 02-25 00:00 :00 No 25 Noel Narayanan USE 1 SPRAY IN EACH NOSTRIL ONCE DAILY. 2-16 00:00: 00 02-25 00:00 :00 No 50 Noel Narayanan TAKE 1 CAPSULE EVERY MORNING. 2-09 00:00: 00 02-25 00:00 :00 No [id number] Noel Narayanan TAKE 1 TABLET DAILY. 2-09 00:00: 00 02-25 00:00 :00 No 10 Noel Narayanan TAKE 1 TABLET AT BEDTIME. 2-09 00:00: 00 02-25 00:00 :00 No 40 Noel Narayanan TAKE 1 CAPSULE EVERY MORNING. 8- 00:00: 00 02-25 00:00 :00 No [id number] Noel Narayanan TAKE 1 TABLET AT BEDTIME. 8-29 00:00: 00 02-25 00:00 :00 No 40 Noel Narayanan TAKE 1 TABLET DAILY. 8- 00:00: 00 02-25 00:00 :00 No 10 Noel Narayanan Zithromax 250 mg tablet 2020-11 2-24 00:00: 00 Yes 1mg Noel Mejia Oracio Zithromax 250 mg tablet 2020-11 2-23 00:00: 00 Yes 1mg Noel Narayanan Bromfed DM 2 mg-30 mg-10 mg/5 mL oral syrup 2020-11 00:00: 00 Yes 1mg/5 mL Noel Narayanan atorvastati n 40 mg tablet 06-18 00:00: 00 Yes 1mg Noel Narayanan atorvastati n 20 mg tablet 06-13 00:00: 00 Yes 1mg Noel Narayanan triamterene 37.5 mg-hydrochl orothiazide 25 mg tablet 06-13 00:00: 00 Yes 1mg Noel Narayanan loratadine 10 mg tablet 06-13 00:00: 00 Yes 1mg Noel Narayanan famotidine 40 mg tablet 06-13 00:00: 00 Yes 1mg Noel Narayanan Flonase Allergy Relief 50 mcg/actuati on nasal spray,suspe nsion 06-13 00:00: 00 Yes 1mcg/ac tuation Noel Narayanan atorvastati n 20 mg tablet 03-04 00:00: 00 Yes 1mg Noel Narayanan atorvastati n 20 mg tablet 2019-11 00:00: 00 Yes 1mg Noel Narayanan Omeprazole 20 mg tablet 2019-11 10:44: 24 Yes Take by mouth. [facility] estradioL 0.01 % (0.1 mg/gram) vaginal cream 2019-11 00:00: 00 Yes [id number] 1g Insert 1 g into vagina daily. After 2 weeks, then can use twice weekly. [facility] famotidine 40 mg tablet 2019-11 00:00: 00 Yes 1mg Noel Narayanan triamterene 37.5 mg-hydrochl orothiazide 25 mg tablet 2019-11 00:00: 00 Yes 1mg Noel Narayanan loratadine 10 mg tablet 2019-11 00:00: 00 Yes 1mg Noel Narayanan gabapentin 300 mg capsule 2019-11 00:00: 00 Yes 1mg Noel Narayanan loratadine 10 mg tablet 08-03 00:00: 00 Yes 10mg Take 10 mg by mouth daily. [facility] triamterene -hydrochlor othiazid 37.5-25 mg tablet 08-03 00:00: 00 Yes 1{tbl} Take 1 tablet by mouth daily. Kartik nolasco [facility] loratadine 10 mg tablet 06-17 00:00: 00 Yes 1mg Noel Narayanan triamterene 37.5 mg-hydrochl orothiazide 25 mg tablet 06-17 00:00: 00 Yes 1mg Noel Narayanan famotidine 40 mg tablet 06-17 00:00: 00 Yes 1mg Noel Narayanan gabapentin 300 mg capsule 06-17 00:00: 00 Yes 1mg Noel Narayanan famciclovir 500 mg tablet 06-14 00:00: 00 Yes 1mg Noel Narayanan gabapentin 300 mg capsule 06-14 00:00: 00 Yes 1mg Noel Narayanan loratadine 10 mg tablet 06-02 00:00: 00 Yes 1mg Noel Narayanan triamterene 37.5 mg-hydrochl orothiazide 25 mg tablet 06-02 00:00: 00 Yes 1mg Noel Narayanan Augmentin 875 mg-125 mg tablet 06-02 00:00: 00 Yes 1mg Noel Narayanan Flonase Allergy Relief 50 mcg/actuati on nasal spray,suspe nsion 06-02 00:00: 00 Yes 1mcg/ac tuation Noel Narayanan Flonase Allergy Relief 50 mcg/actuati on nasal spray,suspe nsion 05-31 00:00: 00 Yes 1mcg/ac tuation Noel Narayanan loratadine 10 mg tablet 05-31 00:00: 00 Yes 1mg Noel Narayanan triamterene 37.5 mg-hydrochl orothiazide 25 mg tablet 05-31 00:00: 00 Yes 1mg Noel Narayanan famotidine 40 mg tablet 05-31 00:00: 00 Yes 1mg Noel Narayanan famotidine 40 mg tablet 02-15 00:00: 00 Yes 1mg Noel Narayanan loratadine 10 mg tablet 02-15 00:00: 00 Yes 1mg Noel Narayanan triamterene 37.5 mg-hydrochl orothiazide 25 mg tablet 02-15 00:00: 00 Yes 1mg Noel Jackie Narayanan Augmentin 875 mg-125 mg tablet 02-15 00:00: 00 Yes 1mg Noel Jackie Narayanan Flonase Allergy Relief 50 mcg/actuati on nasal spray,suspe nsion 02-15 00:00: 00 Yes 1mcg/ac tuation Noel Narayanan Immunizations Ordered Immunization Name Filled Immunization Name Date Status Comments Source Influenza, injectable, Madin Iva Canine Kidney, preservative-free, quadrivalent Influenza, injectable, Madin Iva Canine Kidney, preservative-free, quadrivalent 2024-08-28 00:00:00 Completed Noel Narayanan TDAP 2021-05-24 00:00:00 Completed [facility] SARS-COV-2 COVID-19 MODERNA VACCINE 2021-01-15 00:00:00 Completed [facility] zoster zoster 2020-10-19 00:00:00 Completed Noel Narayanan Zoster Vaccine Recombinant 2020-10-19 00:00:00 Completed [facility] Influenza Virus Vaccine Recomb Quad IM, Preserv and ABX Free 18-64 YRS 2020-08-08 00:00:00 Completed [facility] Hep B, adult Hep B, adult 2018-01-25 00:00:00 Completed Noelmartha Narayanan Tdap Tdap 2018-01-25 00:00:00 Completed Noel Narayanan Hep A, adult Hep A, adult 2011-07-18 00:00:00 Completed Noel Narayanan Hep B, adult Hep B, adult 2011-07-18 00:00:00 Completed Noel Narayanan Hep A, adult Hep A, adult 2009-03-16 00:00:00 Completed Noel Narayanan Hep B, adult Hep B, adult 2009-03-16 00:00:00 Completed Noel Narayanan Tdap Tdap 2009-03-16 00:00:00 Jesu Narayanan Vital Signs Vital Name Observation Time Observation Value Comments S maye BP Systolic 2024-11-24 10:32:00 122 mm[Hg] Dejon Narayanan BP Diastolic 2024-11-24 10:32:00 72 mm[Hg] Omi Narayanan Weight Measured 2024-11-24 10:32:00 152.00 pounds Noel F Oracio Height Measured 2024-11-24 10:32:00 65.00 inches Noel F Oracio Body Temperature 2024-11-24 10:32:00 98.40 degrees Noel F Oracio Heart Rate 2024-11-24 10:32:00 84.00 /min Holli en F Oracio Respiratory Rate 2024-11-24 10:32:00 Noel F Oracio BP Systolic 2024-08-28 13:33:00 116 mm[Hg] Step hen F Oracio BP Diastolic 2024-08-28 13:33:00 72 mm[Hg] Omi phen F Oracio Weight Measured 2024-08-28 13:33:00 144.80 pounds Noel F Oracio Height Measured 2024-08-28 13:33:00 65.00 inches Noel F Oracio Body Temperature 2024-08-28 13:33:00 97.70 degrees Noel F Oracio Heart Rate 2024-08-28 13:33:00 75.00 /min Holli en F Oracio Respiratory Rate 2024-08-28 13:33:00 Noel F Oracio Body Temperature 2024-05-09 11:36:00 97.90 degrees Noel F Oracio Heart Rate 2024-05-09 11:36:00 70.00 /min Holli en F Oracio Respiratory Rate 2024-05-09 11:36:00 Noel F Oracio BP Systolic 2024-05-09 11:36:00 120 mm[Hg] Step hen F Oracio BP Diastolic 2024-05-09 11:36:00 81 mm[Hg] Omi phen F Oracio Weight Measured 2024-05-09 11:36:00 143.80 pounds Noel F Oracio Height Measured 2024-05-09 11:36:00 65.00 inches Noel F Oracio BP Systolic 2023-02-19 14:50:00 122 mm[Hg] Step hen F Oracio BP Diastolic 2023-02-19 14:50:00 79 mm[Hg] Omi phen F Oracio Weight Measured 2023-02-19 14:50:00 153.00 pounds Noel F Oracio Height Measured 2023-02-19 14:50:00 65.00 inches Noel F Oracio Body Temperature 2023-02-19 14:50:00 98.10 degrees Noel F Oracio Heart Rate 2023-02-19 14:50:00 74.00 /min Holli en F Oracio Respiratory Rate 2023-02-19 14:50:00 Noel F Oracio BP Systolic 2022-12-28 14:34:00 135 mm[Hg] Step hen F Oracio BP Diastolic 2022-12-28 14:34:00 78 mm[Hg] Omi phen F Oracio Weight Measured 2022-12-28 14:34:00 Noel F Oracio Height Measured 2022-12-28 14:34:00 Noel F Oracio Body Temperature 2022-12-28 14:34:00 Noel F Oracio Heart Rate 2022-12-28 14:34:00 Holli en F Oracio Respiratory Rate 2022-12-28 14:34:00 Noel F Oracio BP Systolic 2021-06-13 10:44:00 139 mm[Hg] Step hen F Oracio BP Diastolic 2021-06-13 10:44:00 80 mm[Hg] Omi phen F Oracio Weight Measured 2021-06-13 10:44:00 149.80 pounds Noel F Oracio Height Measured 2021-06-13 10:44:00 65.00 inches Noel F Oracio Body Temperature 2021-06-13 10:44:00 97.60 degrees Noel F Oracio Heart Rate 2021-06-13 10:44:00 72.00 /min Holli en F Oracio Respiratory Rate 2021-06-13 10:44:00 Noel F Oracio BP Systolic 2021-04-05 16:57:00 135 mm[Hg] Step hen F Oracio BP Diastolic 2021-04-05 16:57:00 86 mm[Hg] Omi phen F Oracio Weight Measured 2021-04-05 16:57:00 334.22 pounds Noel F Oracio Height Measured 2021-04-05 16:57:00 65.00 inches Noel F Oracio Body Temperature 2021-04-05 16:57:00 97.50 degrees Noel F Oracio Heart Rate 2021-04-05 16:57:00 82.00 /min Holli en F Oracio Respiratory Rate 2021-04-05 16:57:00 Noel F Oracio BP Systolic 2021-02-09 10:24:00 132 mm[Hg] Step hen F Oracio BP Diastolic 2021-02-09 10:24:00 77 mm[Hg] Omi phen F Oracio Weight Measured 2021-02-09 10:24:00 164.00 pounds Noel F Oracio Height Measured 2021-02-09 10:24:00 65.00 inches Noel F Oracio Body Temperature 2021-02-09 10:24:00 98.20 degrees Noel F Oracio Heart Rate 2021-02-09 10:24:00 78.00 /min Holli en F Oracio Respiratory Rate 2021-02-09 10:24:00 Noel F Oracio BP Systolic 2020-10-19 09:28:00 144 mm[Hg] Step hen F Oracio BP Diastolic 2020-10-19 09:28:00 85 mm[Hg] Omi phen F Oracio Weight Measured 2020-10-19 09:28:00 162.60 pounds Noel F Oracio Height Measured 2020-10-19 09:28:00 65.00 inches Noel F Oracio Body Temperature 2020-10-19 09:28:00 97.90 degrees Noel F Oracio Heart Rate 2020-10-19 09:28:00 69.00 /min Holli en F Oracio Respiratory Rate 2020-10-19 09:28:00 Noel F Oracio BP Systolic 2020-06-01 11:25:00 Step hen F Oracio BP Diastolic 2020-06-01 11:25:00 Omi phen F Oracio Weight Measured 2020-06-01 11:25:00 157.00 pounds Noel F Oracio Height Measured 2020-06-01 11:25:00 65.00 inches Noel F Oracio Body Temperature 2020-06-01 11:25:00 Noel F Oracio Heart Rate 2020-06-01 11:25:00 Holli en F Oracio Respiratory Rate 2020-06-01 11:25:00 Noel F Oracio BP Systolic 2020-02-16 10:28:00 118 mm[Hg] Step hen F Oracio BP Diastolic 2020-02-16 10:28:00 76 mm[Hg] Omi phen F Oracio Weight Measured 2020-02-16 10:28:00 157.00 pounds Noel F Oracio Height Measured 2020-02-16 10:28:00 65.00 inches Noel F Oracio Body Temperature 2020-02-16 10:28:00 97.00 degrees Noel F Oracio Heart Rate 2020-02-16 10:28:00 70.00 /min Holli Narayanan Respiratory Rate 2020-02-16 10:28:00 16.00 /min Noel Narayanan Procedures Procedure Date / Time Performed Performing Clinicia n Source [id number] Ekg W/ At Least 12 Leads W/ I r 2023-02-19 00:00:00 Noel Narayanan Ekg 2021-02-09 00:00:00 Noel Narayanan Ekg 2020-10-19 00:00:00 Noel Narayanan Encounters Start Date/Time End Date/Time Encounter Type Admission Type Attending [facility] Care Department Encounter ID Source 2024-11-24 10:29:46 2024-11-24 10:29:46 Outpatient SFA [facility] [id number] Noel Narayaann 2024-11-24 00:00:00 2024-11-24 00:00:00 Outpatient Visit SFA [id number] Noel Narayanan 2024-08-28 13:22:04 2024-08-28 13:22:04 Outpatient SFA SFA [id number] Noel Narayanan 2024-05-27 00:00:00 2024-05-27 00:00:00 Outpatient Visit SFA [id number] Noel Narayanan 2024-05-09 11:17:11 2024-05-09 11:17:11 Outpatient SFA [facility] [id number] Noel Narayanan 2024-02-26 13:58:34 2024-02-26 13:58:34 Outpatient SFA SFA [id number] Noel Narayanan 2023-11-29 09:11:18 2023-11-29 09:11:18 Outpatient SFA [facility] [id number] Noel Narayanan 2023-02-19 14:43:46 2023-02-19 14:43:46 Outpatient SFA SFA [id number] Noel Narayanan 2021-10-20 10:30:00 2021-10-20 10:30:00 Outpatient PATRICIA PETERSON [facility] [id number] [facility] 2021-10-20 10:30:00 2021-10-20 10:30:00 Outpatient R PATRICIA STEWART [facility] [id number] [facility] 2021-09-28 00:00:00 2021-09-28 00:00:00 Telephone Patricia Stewart [facility] [id number] [id number] [facility] 2021-03-01 13:32:00 2021-03-01 13:47:00 Laboratory Only Only, Adc Test AlexandriagaviotaOsiel [facility] [id number] [id number] [facility] 2021-03-01 13:30:00 2021-03-01 13:30:00 Outpatient R [facility] [id number] [facility] 2021-03-01 00:00:00 2021-03-01 00:00:00 Letter (Out) Paulo Chaudhry [facility] 1.84.114 [id number] [facility] 2021-01-28 00:00:00 2021-01-28 00:00:00 Orders Only Doctor Unassigned, [place] [facility] [id number] [id number] [facility] 2020-10-20 10:00:00 2020-10-20 10:00:00 Outpatient R PATRICIA STEWART [facility] [id number] [facility] Results Test Description Test Time Test Comments Results Result Co mments Source LIPID [id number] 02:58:12* Test Item Value Reference Range Interpretation Comme nts CHOLESTEROL (test code = 2210) 235 MG/DL <200 H TRIGLYCERIDES (test code = 2232) 193 MG/DL <150 H HDL CHOLESTEROL (test code = 2220) 58 MG/DL >39 CALC LDL CHOL (test code = 2237) 144 MG/DL <100 H NOTE: CALCULATED LDL IS BASED ON MITCHEL-FELDER METHOD WHICHINCLUDES ADJUSTABLE TRIGLYCERIDE:VLDL CHOLESTEROL RATIO.THIS FACTOR VARIES BY MEASURED TRIGLYCERIDE AND NON-HDLCHOLESTEROL CONCENTRATIONS WITH INCREASED CALCULATED LDL SEENIN HIGHER TRIGLYCERIDE OR LOWER NON-HDL SPECIMENS. FOR MOREINFORMATION, SEE CLIENT ANNOUNCEMENT AT [email or web address] RISK RATIO LDL/HDL (test code = 2238) 2.48 RATIO <3.22 UNLESS OTHERW ISE INDICATED, ALL TESTING PERFORMED AT [facility] [address] [place] [address] LENS GAUGER: LAURYN OTT M.D. CLIA NUMBER [id number] [facility] [place]. [id number] HEMOGLOBIN [id number] 02:33:46* Test Item Value Reference Range Interpretation Comme nts HEMOGLOBIN A1c (test code = 97047) 5.5 % 4.2-5.6 HEMOGLOBIN [id number] 00:00:00* Test Item Value Reference Range Interpretation Comme nts HEMOGLOBIN A1c (test code = 89020) 5.5 % Noel NarayananCOMPREHENSIVE METABOLIC [id number] 00:00:00* Test Item Value Reference Range Interpretation Comme nts GLUCOSE (test code = 2217) 85 MG/DL BUN (test code = 2208) 8 MG/DL CREATININE (test code = 2214) 0.65 MG/DL eGFR (2020 CKD-EPI) (test code = 58898) 105 ML/MIN/1.73 CALC BUN/CREAT (test code = 2235) 12 RATIO SODIUM (test code = 223) 140 MEQ/L POTASSIUM (test code = 2228) 3.7 MEQ/L CHLORIDE (test code = 2215) 98 MEQ/L CARBON DIOXIDE (test code = 2206) 30 MEQ/L CALCIUM (test code = 2209) 10.4 MG/DL PROTEIN, TOTAL (test code = 2228) 7.3 G/DL ALBUMIN (test code = 2201) 4.4 G/DL CALC GLOBULIN (test code = 2240) 2.9 G/DL CALC A/G RATIO (test code = 2234) 1.5 RATIO BILIRUBIN, TOTAL (test code = 2207) 0.4 MG/DL ALKALINE PHOSPHATASE (test code = 2204) 121 U/L AST (test code = 2218) 17 U/L ALT (test code = 2219) 17 U/L Noel NarayananLIPID [id number] 00:00:00* Test Item Value Reference Range Interpretation Comme nts CHOLESTEROL (test code = 2210) 235 MG/DL TRIGLYCERIDES (test code = 2232) 193 MG/DL HDL CHOLESTEROL (test code = 2220) 58 MG/DL CALC LDL CHOL (test code = 2237) 144 MG/DL RISK RATIO LDL/HDL (test cod e = 2238) 2.48 RATIO Noel NarayananCOMPREHENSIVE METABOLIC [id number] 04:02:51* Test Item Value Reference Range Interpretation Comme nts GLUCOSE (test code = 2217) 86 MG/DL 70-99 BUN (test code = 2208) 12 MG/DL 6-20 CREATININE (test code = 2214) 0.81 MG/DL 0.60-1.30 eGFR (2020 CKD-EPI) (test co de = 61816) 87 ML/MIN/1.73 >60 CALC BUN/CREAT (test code = 2235) 15 RATIO 6-28 SODIUM (test code = 2231) 141 MEQ/L 133-146 POTASSIUM (test code = 2228) 4.0 MEQ/L 3.5-5.4 CHLORIDE (test code = 2215) 99 MEQ/L 95-107 CARBON DIOXIDE (test code = 2206) 28 MEQ/L 19-31 CALCIUM (test code = 2209) 10.4 MG/DL 8.5-10.5 PROTEIN, TOTAL (test code = 2229) 7.7 G/DL 6.1-8.3 ALBUMIN (test code = 2201) 4.8 G/DL 3.5-5.2 CALC GLOBULIN (test code = 2240) 2.9 G/DL 1.9-3.7 CALC A/G RATIO (test code = 2234) 1.7 RATIO 1.0-2.6 BILIRUBIN, TOTAL (test code = 2207) 0.5 MG/DL <=1.2 ALKALINE PHOSPHATASE (test code = 2204) 111 U/L 40-133 AST (test code = 2218) 22 U/L 9-40 ALT (test code = 2219) 17 U/L 5-40 LIPID [id number] 04:02:51* Test Item Value Reference Range Interpretation Comme nts CHOLESTEROL (test code = 2210) 232 MG/DL <200 H TRIGLYCERIDES (test code = 2232) 120 MG/DL <150 HDL CHOLESTEROL (test code = 2220) 57 MG/DL >39 CALC LDL CHOL (test code = 2237) 151 MG/DL <100 H NOTE: CALCULATED LDL IS BASED ON MITCHEL-FELDER METHOD WHICHINCLUDES ADJUSTABLE TRIGLYCERIDE:VLDL CHOLESTEROL RATIO.THIS FACTOR VARIES BY MEASURED TRIGLYCERIDE AND NON-HDLCHOLESTEROL CONCENTRATIONS WITH INCREASED CALCULATED LDL SEENIN HIGHER TRIGLYCERIDE OR LOWER NON-HDL SPECIMENS. FOR MOREINFORMATION, SEE CLIENT ANNOUNCEMENT AT [email or web address] RISK RATIO LDL/HDL (test code = 2238) 2.65 RATIO <3.22 HEMOGLOBIN [id number] 02:43:18* Test Item Value Reference Range Interpretation Comme nts HEMOGLOBIN A1c (test code = 85919) 5.3 % 4.2-5.6 UNLESS OTHERWISE INDICATED, ALL TESTING PERFORMED AT [facility] [address] [place] [address] LENS GAUGER: LAURYN OTT M.D. CLIA NUMBER [id number] [facility] [place]. [id number] HEMOGLOBIN [id number] 00:00:00* Test Item Value Reference Range Interpretation Comme nts HEMOGLOBIN A1c (test code = 58654) 5.3 % Noel NarayananCOMPREHENSIVE METABOLIC [id number] 00:00:00* Test Item Value Reference Range Interpretation Comme nts GLUCOSE (test code = 2217) 86 MG/DL BUN (test code = 2208) 12 MG/DL CREATININE (test code = 2214) 0.81 MG/DL eGFR (2020 CKD-EPI) (test co de = 21539) 87 ML/MIN/1.73 CALC BUN/CREAT (test code = 2235) 15 RATIO SODIUM (test code = 2231) 141 MEQ/L POTASSIUM (test code = 2228) 4.0 MEQ/L CHLORIDE (test code = 2215) 99 MEQ/L CARBON DIOXIDE (test code = 2206) 28 MEQ/L CALCIUM (test code = 2209) 10.4 MG/DL PROTEIN, TOTAL (test code = 2229) 7.7 G/DL ALBUMIN (test code = 2201) 4.8 G/DL CALC GLOBULIN (test code = 2240) 2.9 G/DL CALC A/G RATIO (test code = 2234) 1.7 RATIO BILIRUBIN, TOTAL (test code = 2207) 0.5 MG/DL ALKALINE PHOSPHATASE (test code = 2204) 111 U/L AST (test code = 2218) 22 U/L ALT (test code = 2219) 17 U/L Noel NarayananLIPID [id number] 00:00:00* Test Item Value Reference Range Interpretation Comme nts CHOLESTEROL (test code = 2210) 232 MG/DL TRIGLYCERIDES (test code = 2232) 120 MG/DL HDL CHOLESTEROL (test code = 2220) 57 MG/DL CALC LDL CHOL (test code = 2237) 151 MG/DL RISK RATIO LDL/HDL (test cod e = 2238) 2.65 RATIO Noel NarayananHEMOGLOBIN [id number] 00:00:00* Test Item Value Reference Range Interpretation Comme nts HEMOGLOBIN A1c (test code = 97290) 5.3 % Noel NarayananCOMPREHENSIVE METABOLIC [id number] 00:00:00* Test Item Value Reference Range Interpretation Comme nts GLUCOSE (test code = 2217) 86 MG/DL BUN (test code = 2208) 12 MG/DL CREATININE (test code = 2214) 0.81 MG/DL eGFR (2020 CKD-EPI) (test co de = 85688) 87 ML/MIN/1.73 CALC BUN/CREAT (test code = 2235) 15 RATIO SODIUM (test code = 2231) 141 MEQ/L POTASSIUM (test code = 2228) 4.0 MEQ/L CHLORIDE (test code = 2215) 99 MEQ/L CARBON DIOXIDE (test code = 2206) 28 MEQ/L CALCIUM (test code = 2209) 10.4 MG/DL PROTEIN, TOTAL (test code = 2229) 7.7 G/DL ALBUMIN (test code = 2201) 4.8 G/DL CALC GLOBULIN (test code = 2240) 2.9 G/DL CALC A/G RATIO (test code = 2234) 1.7 RATIO BILIRUBIN, TOTAL (test code = 2207) 0.5 MG/DL ALKALINE PHOSPHATASE (test code = 2204) 111 U/L AST (test code = 2218) 22 U/L ALT (test code = 2219) 17 U/L Noel NarayananLIPID [id number] 00:00:00* Test Item Value Reference Range Interpretation Comme nts CHOLESTEROL (test code = 2210) 232 MG/DL TRIGLYCERIDES (test code = 2232) 120 MG/DL HDL CHOLESTEROL (test code = 2220) 57 MG/DL CALC LDL CHOL (test code = 2237) 151 MG/DL RISK RATIO LDL/HDL (test cod e = 2238) 2.65 RATIO Noel NarayananVITAMIN D, 25 [id number] 13:43:46* Test Item Value Reference Range Interpretation Comme nts VITAMIN D, 25 OH (test code = 4958) 43 NG/ML SEE BELOW EFFECTIVE 07/2023, PLEASE NOTE NEW METHODOLOGY IS ELECTROCHEMILUMINESCENCE BINDING ASSAY. NOTE: 25-HYDROXYVITAMIN D ASSAY INCLUDES 25-HYDROXYVITAMIN D2 AND D3. INTERPRETIVE RANGES PEDIATRIC (<17 YEARS) . . . . . . . . . . . NG/ML 20-100ADULT: INSUFFICIENT . . . . . . . . . . . . . . NG/ML <20 SUBOPTIMAL . . . . . . . . . . . . . . . NG/ML 20-29 OPTIMAL . . . . . . . . . . . . . . . . . NG/ML 30-100 [facility] has important pathology staff changes effective 01/10/2023. New pathology staff will provide uninterrupted, excellent patient care and clinical consultation. See URL: [email or web address]. UNLESS OTHERWISE INDICATED, ALL TESTING PERFORMED AT [facility] [address] [place] [id number] LENS GAUGER: LAURYN OTT M.D. CLIA NUMBER [id number] [facility] [place]. [id number] TSH REFLEX TO FREE [id number] 13:43:37* Test Item Value Reference Range Interpretation Comme nts TSH REFLEX TO FREE T4 (test code = 2834) 3.160 UIU/ML 0.400-4.100 VITAMIN [id number] 13:43:37* Test Item Value Reference Range Interpretation Comme nts VITAMIN B-12 (test code = 2840) >2000 PG/ML 200-950 H COMPREHENSIVE METABOLIC [id number] 03:47:52* Test Item Value Reference Range Interpretation Comme nts GLUCOSE (test code = 2216) 86 MG/DL 70-99 BUN (test code = 2207) 12 MG/DL 6-20 CREATININE (test code = 2213) 0.56 MG/DL 0.60-1.30 L eGFR (2020 CKD-EPI) (test code = 50647) 110 ML/MIN/1.73 >60 CALC BUN/CREAT (test code = 5) 21 RATIO 6-28 SODIUM (test code = 2230) 141 MEQ/L 133-146 POTASSIUM (test code = 222) 3.3 MEQ/L 3.5-5.4 L CHLORIDE (test code = 2214) 100 MEQ/L 95-107 CARBON DIOXIDE (test code = 2205) 27 MEQ/L 19-31 CALCIUM (test code = 220) 10.1 MG/DL 8.5-10.5 PROTEIN, TOTAL (test code = 2228) 7.5 G/DL 6.1-8.3 ALBUMIN (test code = 2200) 4.7 G/DL 3.5-5.2 CALC GLOBULIN (test code = 2240) 2.8 G/DL 1.9-3.7 CALC A/G RATIO (test code = 2233) 1.7 RATIO 1.0-2.6 BILIRUBIN, TOTAL (test code = 2206) 0.2 MG/DL See_Comment [Automated me ssage] The system which generated this result transmitted reference range: <=1.2. The reference range was not used to interpret this result as normal/abnormal. ALKALINE PHOSPHATASE (test code = 2203) 105 U/L 40-132 AST (test code = 2218) 16 U/L 9-40 ALT (test code = 2219) 16 U/L 5-40 LIPID [id number] 03:47:52* Test Item Value Reference Range Interpretation Comme nts CHOLESTEROL (test code = 0) 258 MG/DL <200 H TRIGLYCERIDES (test code [...] SPECIMENS. FOR MOREINFORMATION, SEE CLIENT ANNOUNCEMENT AT [email or web address] RISK RATIO LDL/HDL (test code = 2238) 3.09 RATIO <3.22 [id number] 03:38:30* Test Item Value Reference Range Interpretation Comme nts MAGNESIUM (test code = 2226) 2.0 MG/DL 1.6-2.6 CBC W/AUTO DIFF WITH [id number] 02:37:39* Test Item Value Reference Range Interpretation [...] = 1065) 0.0 /100 WBC'S See_Comment [Automated [employer] The system which generated this result transmitted [...] 0.00-0.10 ABS NUCLEATED RBCS (test code = 76299) 0.00 K/UL 0.00-0.11 COMPREHENSIVE METABOLIC [id number] 00:00:00* Test Item Value Reference Range Interpretation Comme nts GLUCOSE (test code = 2217) 86 MG/DL BUN (test code = 2208) 12 MG/DL CREATININE (test code = 2214) 0.56 MG/DL eGFR (2020 CKD-EPI) (test code = 94541) 110 ML/MIN/1.73 CALC BUN/CREAT (test code = 2235) 21 RATIO SODIUM (test code = 2231) 141 MEQ/L POTASSIUM (test code = 2228) 3.3 MEQ/L CHLORIDE (test code = 2215) 100 MEQ/L CARBON DIOXIDE (test code = 2206) 27 MEQ/L CALCIUM (test code = 2209) 10.1 MG/DL PROTEIN, TOTAL (test code = 2229) 7.5 G/DL ALBUMIN (test code = 2201) 4.7 G/DL CALC GLOBULIN (test code = 2240) 2.8 G/DL CALC A/G RATIO (test code = 2234) 1.7 RATIO BILIRUBIN, TOTAL (test code = 2207) 0.2 MG/DL ALKALINE PHOSPHATASE (test code = 2204) 105 U/L AST (test code = 2218) 16 U/L ALT (test code = 2219) 16 U/L Noel [id number] 00:00:00* Test Item Value Reference Range Interpretation Comme nts MAGNESIUM (test code = 2226) 2.0 MG/DL Noel F AustinTSH REFLEX TO FREE [id number] 00:00:00* Test Item Value Reference Range Interpretation Comme nts TSH REFLEX TO FREE T4 (test code = 2834) 3.160 UIU/ML Noel NarayananVITAMIN [id number] 00:00:00* Test Item Value Reference Range Interpretation Comme nts VITAMIN B-12 (test code = 2840) >2000 PG/ML Noel NarayananVITAMIN D, 25 [id number] 00:00:00* Test Item Value Reference Range Interpretation Comme nts VITAMIN D, 25 OH (test code = 4958) 43 NG/ML Noel NarayananCBC W/AUTO [id number] 00:00:00* Test Item Value Reference Range Interpretation Comme nts WBC (test code = 1001) 7.3 K/UL RBC (test code = 1002) 4.34 M/UL HEMOGLOBIN (test code = 1003) 11.5 G/DL HEMATOCRIT (test code = 1004) 34.3 % MCV (test code = 1005) 79.0 fL MCH (test code = 1006) 26.5 PG MCHC (test code = 1007) 33.5 G/DL RDW (test code = 1038) 14.6 % NEUTROPHILS (test code = 1008) 49.4 % LYMPHOCYTES (test code = 1010) 41.8 % MONOCYTES (test code = 1011) 6.2 % EOSINOPHILS (test code = 1012) 1.8 % BASOPHILS (test code = 1013) 0.7 % IMMATURE GRANULOCYTES (test code = 1036) 0.1 % NUCLEATED RBCS (test code = 1065) 0.0 /100WBC'S PLATELET COUNT (test code = 1015) 374 K/UL ABSOLUTE NEUTROPHILS (test c ode = 1066) 3.58 K/UL ABSOLUTE LYMPHOCYTES (test c ode = 1067) 3.03 K/UL ABSOLUTE MONOCYTES (test cod e = 1068) 0.45 K/UL ABSOLUTE EOSINOPHILS (test c ode = 1040) 0.13 K/UL ABSOLUTE BASOPHILS (test cod e = 1069) 0.05 K/UL ABS IMMATURE GRANULOCYTES (t est code = 1020) 0.01 K/UL ABS NUCLEATED RBCS (test cod e = 47890) 0.00 K/UL Noel NarayananLIPID [id number] 00:00:00* Test Item Value Reference Range Interpretation Comme nts CHOLESTEROL (test code = 2210) 258 MG/DL TRIGLYCERIDES (test code = 2232) 205 MG/DL HDL CHOLESTEROL (test code = 2220) 54 MG/DL CALC LDL CHOL (test code = 2237) 167 MG/DL RISK RATIO LDL/HDL (test cod e = 2238) 3.09 RATIO Noel NarayananCOMPREHENSIVE METABOLIC [id number] 00:00:00* Test Item Value Reference Range Interpretation Comme nts GLUCOSE (test code = 2217) 86 MG/DL BUN (test code = 2208) 12 MG/DL CREATININE (test code = 2214) 0.56 MG/DL eGFR (2020 CKD-EPI) (test code = 07737) 110 ML/MIN/1.73 CALC BUN/CREAT (test code = 2235) 21 RATIO SODIUM (test code = 2231) 141 MEQ/L POTASSIUM (test code = 2228) 3.3 MEQ/L CHLORIDE (test code = 2215) 100 MEQ/L CARBON DIOXIDE (test code = 2206) 27 MEQ/L CALCIUM (test code = 2209) 10.1 MG/DL PROTEIN, TOTAL (test code = 2229) 7.5 G/DL ALBUMIN (test code = 2201) 4.7 G/DL CALC GLOBULIN (test code = 2240) 2.8 G/DL CALC A/G RATIO (test code = 2234) 1.7 RATIO BILIRUBIN, TOTAL (test code = 2207) 0.2 MG/DL ALKALINE PHOSPHATASE (test code = 2204) 105 U/L AST (test code = 2218) 16 U/L ALT (test code = 2219) 16 U/L Noel [id number] 00:00:00* Test Item Value Reference Range Interpretation Comme nts MAGNESIUM (test code = 2226) 2.0 MG/DL Noel NarayananTSH REFLEX TO FREE [id number] 00:00:00* Test Item Value Reference Range Interpretation Comme nts TSH REFLEX TO FREE T4 (test code = 2834) 3.160 UIU/ML Noel NarayananVITAMIN [id number] 00:00:00* Test Item Value Reference Range Interpretation Comme nts VITAMIN B-12 (test code = 2840) >2000 PG/ML Noel NarayananVITAMIN D, 25 [id number] 00:00:00* Test Item Value Reference Range Interpretation Comme nts VITAMIN D, 25 OH (test code = 4958) 43 NG/ML Noel NarayananCBC W/AUTO [id number] 00:00:00* Test Item Value Reference Range Interpretation Comme nts WBC (test code = 1001) 7.3 K/UL RBC (test code = 1002) 4.34 M/UL HEMOGLOBIN (test code = 1003) 11.5 G/DL HEMATOCRIT (test code = 1004) 34.3 % MCV (test code = 1005) 79.0 fL MCH (test code = 1006) 26.5 PG MCHC (test code = 1007) 33.5 G/DL RDW (test code = 1038) 14.6 % NEUTROPHILS (test code = 1008) 49.4 % LYMPHOCYTES (test code = 1010) 41.8 % MONOCYTES (test code = 1011) 6.2 % EOSINOPHILS (test code = 1012) 1.8 % BASOPHILS (test code = 1013) 0.7 % IMMATURE GRANULOCYTES (test code = 1036) 0.1 % NUCLEATED RBCS (test code = 1065) 0.0 /100WBC'S PLATELET COUNT (test code = 1015) 374 K/UL ABSOLUTE NEUTROPHILS (test c ode = 1066) 3.58 K/UL ABSOLUTE LYMPHOCYTES (test c ode = 1067) 3.03 K/UL ABSOLUTE MONOCYTES (test cod e = 1068) 0.45 K/UL ABSOLUTE EOSINOPHILS (test c ode = 1040) 0.13 K/UL ABSOLUTE BASOPHILS (test cod e = 1069) 0.05 K/UL ABS IMMATURE GRANULOCYTES (t est code = 1020) 0.01 K/UL ABS NUCLEATED RBCS (test cod e = 60213) 0.00 K/UL Noel NarayananLIPID [id number] 00:00:00* Test Item Value Reference Range Interpretation Comme nts CHOLESTEROL (test code = 2210) 258 MG/DL TRIGLYCERIDES (test code = 2232) 205 MG/DL HDL CHOLESTEROL (test code = 2220) 54 MG/DL CALC LDL CHOL (test code = 2237) 167 MG/DL RISK RATIO LDL/HDL (test cod e = 2238) 3.09 RATIO Noel NarayananLIPID [id number] 00:00:00* Test Item Value Reference Range Interpretation Comme nts CHOLESTEROL (test code = 2210) 248 MG/DL TRIGLYCERIDES (test code = 2232) 225 MG/DL HDL CHOLESTEROL (test code = 2220) 49 MG/DL CALC LDL CHOL (test code = 2237) 161 MG/DL RISK RATIO LDL/HDL (test cod e = 2238) 3.29 RATIO Noel NarayananCOMPREHENSIVE METABOLIC [id number] 00:00:00* Test Item Value Reference Range Interpretation Comme nts GLUCOSE (test code = 2217) 82 MG/DL BUN (test code = 2208) 9 MG/DL CREATININE (test code = 2214) 0.57 MG/DL eGFR AMER. (test cod e = 10775) 124 ML/MIN/1.73 eGFR NON- AMER. (test code = 56961) 107 ML/MIN/1.73 CALC BUN/CREAT (test code = 2235) 16 RATIO SODIUM (test code = 2231) 142 MEQ/L POTASSIUM (test code = 2228) 3.9 MEQ/L CHLORIDE (test code = 2215) 103 MEQ/L CARBON DIOXIDE (test code = 2206) 28 MEQ/L CALCIUM (test code = 2209) 9.5 MG/DL PROTEIN, TOTAL (test code = 2229) 7.5 G/DL ALBUMIN (test code = 2201) 4.2 G/DL CALC GLOBULIN (test code = 2240) 3.3 G/DL CALC A/G RATIO (test code = 2234) 1.3 RATIO BILIRUBIN, TOTAL (test code = 2207) <0.2 MG/DL ALKALINE PHOSPHATASE (test code = 2204) 105 U/L AST (test code = 2218) 15 U/L ALT (test code = 2219) 10 U/L Noel NarayananCBC W/AUTO [id number] 00:00:00* Test Item Value Reference Range Interpretation Comme nts WBC (test code = 1001) 6.7 K/UL RBC (test code = 1002) 4.56 M/UL HEMOGLOBIN (test code = 1003) 11.1 G/DL HEMATOCRIT (test code = 1004) 35.4 % MCV (test code = 1005) 77.6 fL MCH (test code = 1006) 24.3 PG MCHC (test code = 1007) 31.4 G/DL RDW (test code = 1038) 14.0 % NEUTROPHILS (test code = 1008) 51.3 % LYMPHOCYTES (test code = 1010) 39.3 % MONOCYTES (test code = 1011) 7.1 % EOSINOPHILS (test code = 1012) 1.5 % BASOPHILS (test code = 1013) 0.4 % IMMATURE GRANULOCYTES (test code = 1036) 0.4 % NUCLEATED RBCS (test code = 1065) 0.0 /100WBC'S PLATELET COUNT (test code = 1015) 391 K/UL ABSOLUTE NEUTROPHILS (test c ode = 1066) 3.45 K/UL ABSOLUTE LYMPHOCYTES (test c ode = 1067) 2.65 K/UL ABSOLUTE MONOCYTES (test cod e = 1068) 0.48 K/UL ABSOLUTE EOSINOPHILS (test c ode = 1040) 0.10 K/UL ABSOLUTE BASOPHILS (test cod e = 1069) 0.03 K/UL ABS IMMATURE GRANULOCYTES (t est code = 1020) 0.03 K/UL ABS NUCLEATED RBCS (test cod e = 70923) 0.00 K/UL Noel Mejia ReadfieldLIPID [id number] 00:00:00* Test Item Value Reference Range Interpretation Comme nts CHOLESTEROL (test code = 2210) 248 MG/DL TRIGLYCERIDES (test code = 2232) 225 MG/DL HDL CHOLESTEROL (test code = 2220) 49 MG/DL CALC LDL CHOL (test code = 2237) 161 MG/DL RISK RATIO LDL/HDL (test cod e = 2238) 3.29 RATIO Noel NarayananCOMPREHENSIVE METABOLIC [id number] 00:00:00* Test Item Value Reference Range Interpretation Comme nts GLUCOSE (test code = 2217) 82 MG/DL BUN (test code = 2208) 9 MG/DL CREATININE (test code = 2214) 0.57 MG/DL eGFR AMER. (test cod e = 15064) 124 ML/MIN/1.73 eGFR NON- AMER. (test code = 75571) 107 ML/MIN/1.73 CALC BUN/CREAT (test code = 2235) 16 RATIO SODIUM (test code = 2231) 142 MEQ/L POTASSIUM (test code = 2228) 3.9 MEQ/L CHLORIDE (test code = 2215) 103 MEQ/L CARBON DIOXIDE (test code = 2206) 28 MEQ/L CALCIUM (test code = 2209) 9.5 MG/DL PROTEIN, TOTAL (test code = 2229) 7.5 G/DL ALBUMIN (test code = 2201) 4.2 G/DL CALC GLOBULIN (test code = 2240) 3.3 G/DL CALC A/G RATIO (test code = 2234) 1.3 RATIO BILIRUBIN, TOTAL (test code = 2207) <0.2 MG/DL ALKALINE PHOSPHATASE (test code = 2204) 105 U/L AST (test code = 2218) 15 U/L ALT (test code = 2219) 10 U/L Noel Mejia [facility]HIG[facility] W/AUTO [id number] 00:00:00* Test Item Value Reference Range Interpretation Comme nts WBC (test code = 1001) 6.7 K/UL RBC (test code = 1002) 4.56 M/UL HEMOGLOBIN (test code = 1003) 11.1 G/DL HEMATOCRIT (test code = 1004) 35.4 % MCV (test code = 1005) 77.6 fL MCH (test code = 1006) 24.3 PG MCHC (test code = 1007) 31.4 G/DL RDW (test code = 1038) 14.0 % NEUTROPHILS (test code = 1008) 51.3 % LYMPHOCYTES (test code = 1010) 39.3 % MONOCYTES (test code = 1011) 7.1 % EOSINOPHILS (test code = 1012) 1.5 % BASOPHILS (test code = 1013) 0.4 % IMMATURE GRANULOCYTES (test code = 1036) 0.4 % NUCLEATED RBCS (test code = 1065) 0.0 /100WBC'S PLATELET COUNT (test code = 1015) 391 K/UL ABSOLUTE NEUTROPHILS (test c ode = 1066) 3.45 K/UL ABSOLUTE LYMPHOCYTES (test c ode = 1067) 2.65 K/UL ABSOLUTE MONOCYTES (test cod e = 1068) 0.48 K/UL ABSOLUTE EOSINOPHILS (test c ode = 1040) 0.10 K/UL ABSOLUTE BASOPHILS (test cod e = 1069) 0.03 K/UL ABS IMMATURE GRANULOCYTES (t est code = 1020) 0.03 K/UL ABS NUCLEATED RBCS (test cod e = 19148) 0.00 K/UL Noel NarayananLIPID [id number] 00:00:00* Test Item Value Reference Range Interpretation Comme nts CHOLESTEROL (test code = 2210) 263 MG/DL TRIGLYCERIDES (test code = 2232) 168 MG/DL HDL CHOLESTEROL (test code = 2220) 62 MG/DL CALC LDL CHOL (test code = 2237) 169 MG/DL RISK RATIO LDL/HDL (test cod e = 2238) 2.73 RATIO Noel NarayananCOMPREHENSIVE METABOLIC [id number] 00:00:00* Test Item Value Reference Range Interpretation Comme nts GLUCOSE (test code = 2217) 91 MG/DL BUN (test code = 2208) 9 MG/DL CREATININE (test code = 2214) 0.68 MG/DL eGFR AMER. (test cod e = 34354) 118 ML/MIN/1.73 eGFR NON- AMER. (test code = 53744) 102 ML/MIN/1.73 CALC BUN/CREAT (test code = 2235) 13 RATIO SODIUM (test code = 2231) 138 MEQ/L POTASSIUM (test code = 2228) 3.5 MEQ/L CHLORIDE (test code = 2215) 95 MEQ/L CARBON DIOXIDE (test code = 2206) 25 MEQ/L CALCIUM (test code = 2209) 10.2 MG/DL PROTEIN, TOTAL (test code = 2229) 8.2 G/DL ALBUMIN (test code = 2201) 4.9 G/DL CALC GLOBULIN (test code = 2240) 3.3 G/DL CALC A/G RATIO (test code = 2234) 1.5 RATIO BILIRUBIN, TOTAL (test code = 2207) 0.4 MG/DL ALKALINE PHOSPHATASE (test code = 2204) 90 U/L AST (test code = 2218) 38 U/L ALT (test code = 2219) 24 U/L Noel [id number] 00:00:00* Test Item Value Reference Range Interpretation Comme nts MAGNESIUM (test code = 2226) 2.2 MG/DL Noel NarayananVITAMIN [id number] 00:00:00* Test Item Value Reference Range Interpretation Comme nts VITAMIN B-12 (test code = 2840) >2000 PG/ML Noel NarayananVITAMIN D, 25 [id number] 00:00:00* Test Item Value Reference Range Interpretation Comme nts VITAMIN D, 25 OH (test code = 4958) 65 NG/ML Noel NarayananCBC W/AUTO [id number] 00:00:00* Test Item Value Reference Range Interpretation Comme nts WBC (test code = 1001) 6.7 K/UL RBC (test code = 1002) 4.95 M/UL HEMOGLOBIN (test code = 1003) 13.6 G/DL HEMATOCRIT (test code = 1004) 42.0 % MCV (test code = 1005) 84.8 fL MCH (test code = 1006) 27.5 PG MCHC (test code = 1007) 32.4 G/DL RDW (test code = 1038) 13.4 % NEUTROPHILS (test code = 1008) 55.3 % LYMPHOCYTES (test code = 1010) 35.1 % MONOCYTES (test code = 1011) 7.7 % EOSINOPHILS (test code = 1012) 1.5 % BASOPHILS (test code = 1013) 0.4 % PLATELET COUNT (test code = 1015) 373 K/UL Noel NarayananLIPID [id number] 00:00:00* Test Item Value Reference Range Interpretation Comme nts CHOLESTEROL (test code = 2210) 263 MG/DL TRIGLYCERIDES (test code = 2232) 168 MG/DL HDL CHOLESTEROL (test code = 2220) 62 MG/DL CALC LDL CHOL (test code = 2237) 169 MG/DL RISK RATIO LDL/HDL (test cod e = 2238) 2.73 RATIO Noel NarayananCOMPREHENSIVE METABOLIC [id number] 00:00:00* Test Item Value Reference Range Interpretation Comme nts GLUCOSE (test code = 2217) 91 MG/DL BUN (test code = 2208) 9 MG/DL CREATININE (test code = 2214) 0.68 MG/DL eGFR AMER. (test cod e = 03410) 118 ML/MIN/1.73 eGFR NON- AMER. (test code = 62118) 102 ML/MIN/1.73 CALC BUN/CREAT (test code = 2235) 13 RATIO SODIUM (test code = 2231) 138 MEQ/L POTASSIUM (test code = 2228) 3.5 MEQ/L CHLORIDE (test code = 2215) 95 MEQ/L CARBON DIOXIDE (test code = 2206) 25 MEQ/L CALCIUM (test code = 2209) 10.2 MG/DL PROTEIN, TOTAL (test code = 2229) 8.2 G/DL ALBUMIN (test code = 2201) 4.9 G/DL CALC GLOBULIN (test code = 2240) 3.3 G/DL CALC A/G RATIO (test code = 2234) 1.5 RATIO BILIRUBIN, TOTAL (test code = 2207) 0.4 MG/DL ALKALINE PHOSPHATASE (test code = 2204) 90 U/L AST (test code = 2218) 38 U/L ALT (test code = 2219) 24 U/L Noel [id number] 00:00:00* Test Item Value Reference Range Interpretation Comme [facility] MAGNESIUM (test code = 2226) 2.2 MG/DL Noel NarayananVITAMIN [id number] 00:00:00* Test Item Value Reference Range Interpretation Comme [facility] VITAMIN B-12 (test code = 2840) >2000 PG/ML Noel NarayananVITAMIN D, 25 [id number] 00:00:00* Test Item Value Reference Range Interpretation Comme [facility] VITAMIN D, 25 OH (test code = 4958) 65 NG/ML Noel NarayananCBC W/AUTO [id number] 00:00:00* Test Item Value Reference Range Interpretation Comme [facility] WBC (test code = 1001) 6.7 K/UL RBC (test code = 1002) 4.95 M/UL HEMOGLOBIN (test code = 1003) 13.6 G/DL HEMATOCRIT (test code = 1004) 42.0 % MCV (test code = 1005) 84.8 fL MCH (test code = 1006) 27.5 PG MCHC (test code = 1007) 32.4 G/DL RDW (test code = 1038) 13.4 % NEUTROPHILS (test code = 1008) 55.3 % LYMPHOCYTES (test code = 1010) 35.1 % MONOCYTES (test code = 1011) 7.7 % EOSINOPHILS (test code = 1012) 1.5 % BASOPHILS (test code = 1013) 0.4 % PLATELET COUNT (test code = 1015) 373 K/UL Noel NarayananSARS-CoV-2 (COVID-19) by RT-PCR (HIGH RISK)2020-06-17 00:00:00* Test Item Value Reference Range Interpretation Comme nts SARS-CoV-2 INTERPRETATION (t est code = 35422) POSITIVE SOURCE (test code = 97214) NOT SPECIFIED Noel NarayananSARS-CoV-2 (COVID-19) by RT-PCR (HIGH RISK)2020-06-17 00:00:00* Test Item Value Reference Range Interpretation Comme nts SARS-CoV-2 INTERPRETATION (t est code = 64478) POSITIVE SOURCE (test code = 81750) NOT SPECIFIED Noel Narayanan Notes Date/Time Note Provider Source [facility]2024-07-16 00:00:00 [facility]
[2025-07-08] MEDS ORDERED: FAMOTIDINE 20 MG/2 ML VIAL IV ONE (21:54)
[2025-07-08] MEDS ORDERED: NA CHLORIDE 0.9% 1,000 ML ONE (21:54)
[2025-07-08] MEDS ORDERED: PANTOPRAZOLE 40 MG INJ ONE (21:54)
[2025-07-08] MEDS ORDERED: LIDOCAINE VISCOUS 2% 10ML ORAL SOLN ONE (21:54)
[2025-07-08] MEDS ORDERED: MAGNES/ALUMIN/SIMET 30ML UCUP ONE (21:54)
[2025-07-08] MEDS ORDERED: KETOROLAC 30 MG/ML INJ ONE (21:54)
--- NOTE | 2025-07-08 22:30 | RAD REPORT ---
Procedure: Chest Single View HISTORY: Chest pain COMPARISON: 2023 FINDINGS: The lungs appear clear of acute infiltrate. No significant pleural effusion noted. The heart is normal size. IMPRESSION: No acute abnormality is displayed.
[2025-07-08 22:41] LABS: ALT/SGPT 27 U/L (13-56); AST/SGOT 19 U/L (15-37); Albumin 4.0 g/dL (3.4-5.0); Albumin/Globulin Ratio 1.0 (1.1-1.8); Alkaline Phosphatase 114 U/L (45-117); Anion Gap 8.1 mEq/L (5.0-15.0); BUN Blood Urea Nitrogen 10 mg/dL (7-18); Globulin 4.1 g/dL (2.3-3.5); Glucose Level 97 mg/dL (74-106); NT PRO-BNP 44 pg/mL (<125); Potassium 3.1 mEq/L (3.5-5.1); Troponin High Sensitivity 4.2 pg/mL (<58.9)
[2025-07-08 22:55] LABS: Absolute Lymphocytes (CBC) 2.1 K/uL (0.7-4.9); Hematocrit 38.5 % (36.0-45.0); Hemoglobin 12.6 g/dL (12.0-15.0); MCH 25.7 pg (27.0-35.0); MCHC 32.8 g/dL (32.0-36.0); MCV 78.2 fL (80-100); MPV 8.9 fL (7.6-11.3); Nucleated RBC Absolute Count 0.0 (0-0); Nucleated Red Blood Cells % 0.1 % (0-0); RBC Red Blood Cell Count 4.92 M/uL (3.86-4.86); White Blood Count 7.30 thou/uL (4.3-10.9)
[2025-07-08 22:56] LABS: Bilirubin Indirect, Calculated 0.1 mg/dL (0.2-0.8)
[2025-07-09] MEDS ORDERED: HYDRALAZINE HCL 20 MG/ML VIAL ONE (00:53)
--- NOTE | 2025-07-09 01:07 | ER ---
Nurse's Notes [facility] Name: La Mata Age: 55 yrs Sex: Female : 1970 Arrival Date: 07/08/2025 Time: 20:31 Bed 6 Private MD: Diagnosis: Chest pain, unspecified Presentation: 07/08 20:41 Coronavirus screen: Vaccine status: Patient reports receiving the 2nd dose of the covid kd3 vaccine. Ebola Screen: No symptoms or risks identified at this time. Initial Sepsis Screen: Does the patient meet any 2 criteria? No. Patient's initial sepsis screen is negative. Does the patient have a suspected source of infection? No. Patient's initial sepsis screen is negative. Risk Assessment: Do you want to hurt yourself or someone else? Patient reports no desire to harm self or others. Onset of symptoms was July 08, 2025. 20:41 Method Of Arrival: Ambulatory kd3 20:41 Acuity: [place] 3 kd3 20:41 Chief complaint: Patient states: I have not been feeling good since last night. My kd3 blood pressure is high. I feel burning in my chest that comes and goes. I have had a headache. I do take blood pressure medications as i am supposed to for 2 weeks now. Triage Assessment: 20:43 General: Appears in no apparent distress. Behavior is calm, cooperative. Pain: kd3 Complains of pain in chest. Cardiovascular: Capillary refill < 3 seconds Patient's skin is warm and dry. Historical: - PMHx: 20:43 High Cholesterol; Hypertensive disorder; kd3 - PSHx: 20:43 Tummy tuck; uterine ablasian; kd3 - Immunization history:: Adult Immunizations up to date. - Infectious Disease History:: Denies. - Social history:: Smoking status: Patient denies any tobacco usage or history of. Screenin:20 [facility] ED Fall Risk Assessment (Adult) History of falling in the last 3 months, jj7 including since admission No falls in past 3 months (0 pts) Confusion or Disorientation No (0 pts) Intoxicated or Sedated No (0 pts) Impaired Gait No (0 pts) Mobility Assist Device Used No (0 pt) Altered Elimination No (0 pt) Score/Fall Risk Level 0 - 2 = Low Risk Oriented to surroundings, Maintained a safe environment, Educated pt \T\ family on fall prevention, incl call for assistance when getting out of bed, Assessed \T\ reinforced patient's understanding of fall precautions. Abuse screen: Denies threats or abuse. Nutritional screening: No deficits noted. Tuberculosis screening: No symptoms or risk factors identified. Assessment: 21:20 General: Appears in no apparent distress. comfortable, Behavior is calm, cooperative, jj7 appropriate for age. Pain: Denies pain. Pain does not radiate. Neuro: No deficits noted. Level of Consciousness is awake, alert, obeys commands, Oriented to person, place, time, situation, Appropriate for age. Cardiovascular: Reports CHEST BURNING Denies chest pain. Respiratory: No deficits noted. Airway is patent Trachea midline Respiratory effort is even, unlabored, Respiratory pattern is regular, symmetrical. GI: Reports epigastric pain. 07/09 01:17 Reassessment: Patient appears in no apparent distress at this time. Patient and/or lg3 family updated on plan of care and expected duration. Pain level reassessed. Patient is alert, oriented x 3, equal unlabored respirations, skin warm/dry/pink. Patient states feeling better. Patient states symptoms have improved. Vital Signs: 07/08 20:41 BP 174 / 97; Pulse 81; Resp 18; Temp 98.2(O); Pulse Ox 95% on R/A; Weight 65.77 kg; kd3 Height 5 ft. 5 in. ; 22:18 BP 165 / 90; Pulse 62; Resp 17; Pulse Ox 100% ; jj7 23:30 BP 165 / 90; Pulse 60; Resp 16; Pulse Ox 98% ; jj7 07/09 00:30 BP 167 / 76; Pulse 64; Resp 20; Pulse Ox 97% ; jj7 01:15 BP 145 / 87; Pulse 61; Resp 17 S; Pulse Ox 99% on R/A; lg3 07/08 20:41 Body Mass Index 24.13 (65.77 kg, 165.1 cm) kd3 ED Course: 07/08 20:33 Patient arrived in ED. jj6 20:41 Triage completed. kd3 20:43 Arm band placed on right wrist. EKG completed in triage. Results shown to MD. kd3 20:45 Nathan Lee MD is Attending Physician. tw7 21:20 Patient has correct armband on for positive identification. Bed in low position. Call jj7 light in reach. Side rails up X2. Adult w/ patient. Provided Education on: USE OF CALL DESAI. Client placed on continuous cardiac and pulse oximetry monitoring. NIBP monitoring applied. terminal worker on. Pulse ox on. NIBP on. Warm blanket given. 21:20 Inserted saline lock: 20 gauge in left antecubital area, using aseptic technique. Blood jj7 collected. Flushed with 10 mL NS. 21:51 XRAY Chest (1 view) In Process Unspecified. EDMS 22:08 Basic Metabolic Panel Sent. j7 22:08 CBC with Diff Sent. jj7 22:08 D-Dimer Sent. j 22:08 LFT's Sent. 22:08 NT PRO-BNP Sent. :08 Troponin HS Sent. 07/09 01:06 Johanna Sylvester DO is Referral Physician. tw7 01:16 No provider procedures requiring assistance completed. IV discontinued, intact, lg3 bleeding controlled, No redness/swelling at site. Pressure dressing applied. Patient maintains SpO2 saturation greater than 95% on room air. Administered Medications: 07/08 22:06 Drug: Pantoprazole IVP 40 mg IVP once Route: IVP; Site: left antecubital; 07/09 00:56 Follow up: Response: Marked relief of symptoms 07/08 22:06 Drug: Ketorolac IVP 15 mg IVP once Route: IVP; Site: left antecubital; 07/09 00:56 Follow up: Response: Marked relief of symptoms 07/08 22:06 Drug: GI Cocktail without - (Maalox PO 30 ml, Lidocaine Mucous Membrane 2 % 15 jj7 ml) PO once Route: PO; 07/09 00:56 Follow up: Response: Marked relief of symptoms 07/08 22:07 Drug: NS 0.9% IV 1000 ml IV at 1000 ml once; to be given as a bolus over 60 minutes j7 Route: IV; Rate: 1000 ml; Site: left antecubital; 07/09 01:17 Follow up: Response: No adverse reaction; IV Status: Completed infusion; IV Intake: lg3 1000ml 07/08 22:07 Drug: Famotidine IVP 20 mg IVP once; dilute with 10 mL 0.9% NaCl; give over 2 minutes Route: IVP; Site: left antecubital; 07/09 00:56 Follow up: Response: Marked relief of symptoms 00:55 Drug: hydrALAZINE IVP 5 mg IVP once Route: IVP; Site: left antecubital; 01:16 Follow up: Response: No adverse reaction; Marked relief of symptoms; Blood pressure is lg3 lowered Medication: 07/08 21:20 VIS not applicable for this client. jj7 Intake: 07/09 01:17 IV: 1000ml; Total: 1000ml. lg3 Outcome: 01:06 Discharge ordered by . tw7 01:16 Discharged to home ambulatory, with significant other, lg3 01:16 Condition: stable 01:16 Discharge instructions given to patient, Instructed on discharge instructions, follow up and referral plans. medication usage, Demonstrated understanding of instructions, follow-up care, medications, Prescriptions given X 2, 01:17 Patient left the ED. lg3 Signatures: Dispatcher [employer] EDMS Leela Cornejo, RN RN lg3 Ktahy Rankin jj6 Nataliia Collado RN RN kd3 Severiano Garcia RN RN jj7 Nathan Lee MD MD tw7
--- NOTE | 2025-07-09 01:07 | EDPHYS ---
Physician Documentation [facility] Name: La Mata Age: 55 yrs Sex: Female : 1970 Arrival Date: 07/08/2025 Time: 20:31 Bed 6 Private MD: ED Physician Nathan Lee HPI: 07/08 21:32 This 55 yrs old Female presents to ER via Ambulatory with complaints of Chest tw7 Pain. 21:32 55-year-old female with a past medical history of hypertension, hyperlipidemia presents tw7 ED today with complaints of chest pain. Patient reports she is having chest pain for 2 days. Patient ports chest pain is located in the center of her chest. Patient reports that it feels like a burning sensation in her chest and that she thought that she had acid reflux. Patient reports tonight she checked her blood pressure once elevated so she had to come into the ED. She reports she tried taking some medication at home, cayenne pepper because her blood pressure was elevated, she reports that that helped. She also reports some mild associated shortness of breath. She has her chest pain comes and goes that became more constant this evening approximately 3 hours ago. She denies abdominal pain, nausea, vomiting. Denies fever or cough. She denies any recent surgeries. She denies being on control. Denies any leg pain or swelling.. Historical: - PMHx: 20:43 High Cholesterol; Hypertensive disorder; kd3 - PSHx: 20:43 Tummy tuck; uterine ablasian; kd3 - Immunization history:: Adult Immunizations up to date. - Infectious Disease History:: Denies. - Social history:: Smoking status: Patient denies any tobacco usage or history of. ROS: 21:34 Constitutional: Negative for fever, chills, and weight loss, Eyes: Negative for injury, tw7 pain, redness, and discharge, ENT: Negative for injury, pain, and discharge, Neck: Negative for injury, pain, and swelling, Abdomen/GI: Negative for abdominal pain, nausea, vomiting, diarrhea, and constipation, Back: Negative for injury and pain, MS/Extremity: Negative for injury and deformity, 21:34 Cardiovascular: Positive for chest pain, Negative for edema, orthopnea, palpitations, paroxysmal nocturnal dyspnea, 21:34 Respiratory: Positive for shortness of breath, Negative for cough, dyspnea on exertion, hemoptysis, orthopnea, sputum production, wheezing, Exam: 21:34 Constitutional: This is a well developed, well nourished patient who is awake, alert, tw7 and in no acute distress. Head/Face: Normocephalic, atraumatic. Eyes: Pupils equal round and reactive to light, extra-ocular motions intact. Lids and lashes normal. Conjunctiva and sclera are non-icteric and not injected. Cornea within normal limits. Periorbital areas with no swelling, redness, or edema. ENT: Nares patent. No nasal discharge, no septal abnormalities noted. Tympanic membranes are normal and external auditory canals are clear. Oropharynx with no redness, swelling, or masses, exudates, or evidence of obstruction, uvula midline. Mucous membranes moist. Neck: Trachea midline, no thyromegaly or masses palpated, and no cervical lymphadenopathy. Supple, full range of motion without nuchal rigidity, or vertebral point tenderness. No Meningismus. Chest/axilla: Normal chest wall appearance and motion. Nontender with no deformity. No lesions are appreciated. Cardiovascular: Regular rate and rhythm with a normal S1 and S2. No gallops, murmurs, or rubs. Normal PMI, no JVD. No pulse deficits. Respiratory: Lungs have equal breath sounds bilaterally, clear to auscultation and percussion. No rales, rhonchi or wheezes noted. No increased work of breathing, no retractions or nasal flaring. Abdomen/GI: Soft, non-tender, with normal bowel sounds. No distension or tympany. No guarding or rebound. No evidence of tenderness throughout. Negative Herman's. Negative McBurney's Skin: Warm, dry with normal turgor. Normal color with no rashes, no lesions, and no evidence of cellulitis. MS/ Extremity: Pulses equal, no cyanosis. Neurovascular intact. Full, normal range of motion. 21:37 ECG was reviewed by the Attending Physician. tw7 Vital Signs: 20:41 BP 174 / 97; Pulse 81; Resp 18; Temp 98.2(O); Pulse Ox 95% on R/A; Weight 65.77 kg; kd3 Height 5 ft. 5 in. ; 22:18 BP 165 / 90; Pulse 62; Resp 17; Pulse Ox 100% ; jj7 23:30 BP 165 / 90; Pulse 60; Resp 16; Pulse Ox 98% ; jj7 07/09 00:30 BP 167 / 76; Pulse 64; Resp 20; Pulse Ox 97% ; jj7 01:15 BP 145 / 87; Pulse 61; Resp 17 S; Pulse Ox 99% on R/A; lg3 07/08 20:41 Body Mass Index 24.13 (65.77 kg, 165.1 cm) kd3 MDM: 07/08 21:19 Medical Screening Exam initiated tw 21:36 Differential diagnosis: acute myocardial infarction, acute pericarditis, coronary tw7 artery disease congestive heart failure cholecystitis, costochondritis, esophagitis, gastritis, gastroesophageal reflux disease (GERD), hiatal hernia, Raya-Ritter syndrome, myocarditis, pancreatitis, peptic ulcer disease, pericarditis, pneumonia, pneumothorax, pulmonary embolus, thoracic aortic disection, unstable angina. 21:36 HEART Score: History: Slightly Suspicious (0), ECG: Normal (0), Age: > 45 and < 65 tw7 years (1), Risk Factors: 1 or 2 risk factors (1), Troponin: < or = 1 x Normal Limit (0), Total Score = 2. 07/09 01:02 Data reviewed: vital signs, nurses notes. ED course: . 01:05 ED course: 55-year-old female presents ED with lanes of chest pain. On my examination tw7 patient is well-appearing. Mildly hypertensive otherwise normal exam. Lab work performed shows negative troponin. Negative BNP. Negative D-dimer. I considered but not suspect ACS patient is low risk by heart score. I did say consider would not suspect PE D-dimer is negative making PE unlikely. Chest ray shows no evidence of pneumonia pneumothorax, is normal per my independent or potation. Lab work shows no leukocytosis. Normal hemoglobin normal platelets. Patient describes her chest pain as burning, in the center of her chest. Patient reports taking cayenne pepper. I believe patient's chest pain is probably gastroesophageal in nature. Patient is hypertensive and blood pressure is improved with Antivert as of medication. Patient is discharged with close outpatient PCP and cardiology follow-up for further evaluation management. . 07/08 20:46 Order name: Basic Metabolic Panel; Complete Time: 23:10 7 07/08 20:46 Order name: CBC with Diff; Complete Time: 23:10 07/08 20:46 Order name: D-Dimer; Complete Time: 23:10 07/08 20:46 Order name: LFT's; Complete Time: 23:07/08 20:46 Order name: NT PRO-BNP; Complete Time: 23:10 07/08 20:46 Order name: Troponin HS; Complete Time: 23:10 07/08 20:46 Order name: XRAY Chest (1 view); Complete Time: 23:10 07/08 20:46 Order name: EKG; Complete Time: 20:47 07/08 20:46 Order name: Cardiac monitoring; Complete Time: 22:07/08 20:46 Order name: EKG - Nurse/Tech; Complete Time: 22:07/08 20:46 Order name: IV Saline Lock; Complete Time: 22:07/08 20:46 Order name: Labs collected and sent; Complete Time: 22:07/08 20:46 Order name: O2 Per Protocol; Complete Time: 22:07/08 20:46 Order name: O2 Sat Monitoring; Complete Time: 22: EC/27 21:37 Rate is 78 beats/min. Rhythm is regular. QRS [place] is Normal. [place] interval is normal. QRS tw7 interval is normal. QT interval is normal. No Q waves. T waves are Normal. No ST changes noted. Administered Medications: 22:06 Drug: Pantoprazole IVP 40 mg IVP once Route: IVP; Site: left antecubital; 07/09 00:56 Follow up: Response: Marked relief of symptoms 07/08 22:06 Drug: Ketorolac IVP 15 mg IVP once Route: IVP; Site: left antecubital; 07/09 00:56 Follow up: Response: Marked relief of symptoms 07/08 22:06 Drug: GI Cocktail without - (Maalox PO 30 ml, Lidocaine Mucous Membrane 2 % 15 jj7 ml) PO once Route: PO; 07/09 00:56 Follow up: Response: Marked relief of symptoms 07/08 22:07 Drug: NS 0.9% IV 1000 ml IV at 1000 ml once; to be given as a bolus over 60 minutes j7 Route: IV; Rate: 1000 ml; Site: left antecubital; 07/09 01:17 Follow up: Response: No adverse reaction; IV Status: Completed infusion; IV Intake: lg3 1000ml 07/08 22:07 Drug: Famotidine IVP 20 mg IVP once; dilute with 10 mL 0.9% NaCl; give over 2 minutes j7 Route: IVP; Site: left antecubital; 07/09 00:56 Follow up: Response: Marked relief of symptoms 00:55 Drug: hydrALAZINE IVP 5 mg IVP once Route: IVP; Site: left antecubital; j 01:16 Follow up: Response: No adverse reaction; Marked relief of symptoms; Blood pressure is lg3 lowered Disposition Summary: 07/09/25 01:06 Discharge Ordered Notes: Location: Home tw7 Problem: new tw7 Symptoms: have improved tw7 Condition: Stable tw7 Diagnosis - Chest pain, unspecified tw7 Followup: tw7 - With: Johanna Sylvester DO - When: 48 Hours - Reason: Re-evaluation by your physician Discharge Instructions: - Discharge Summary Sheet tw7 - Nonspecific Chest Pain, Adult tw7 Forms: - Medication Reconciliation Form tw7 - Antibiotic Education 7 - Prescription Opioid Use tw7 - Patient Portal Instructions tw7 - Leadership Thank You Letter 7 Prescriptions: - omeprazole 20 mg Oral capsule,delayed release (e.c.) - dissolve 1 capsule ORAL route daily; 30 capsule; Refills: 0, Product Selection tw7 Permitted - Pepcid 20 mg Oral Tablet - take 1 tablet ORAL route once daily; 20 tablet; Refills: 0, Product Selection tw7 Permitted Signatures: Dispatcher [employer] EDWY Nataliia Collado RN RN kd3 Severiano Garcia RN RN jj7 Nathan Lee MD MD tw7 Leela Cornejo RN lg3 Corrections: (The following items were deleted from the chart) 07/08 21:34 21:32 55-year-old female with a past medical history of hypertension, hyperlipidemia tw7 presents ED today with complaints of chest pain. Patient reports she is having chest pain for 2 days. Patient ports chest pain is located in the center of her chest. Patient reports that it feels like a burning sensation in her chest and that she thought that she had acid reflux. Patient reports tonight she checked her blood pressure once elevated so she had to come into the ED. She reports she tried taking some medication at home, cayenne pepper because her blood pressure was elevated, she reports that that helped. She also reports some mild associated shortness of breath. She has her chest pain comes and goes that became more constant this evening approximately 3 hours ago. She denies abdominal pain, nausea, vomiting. Denies fever or cough.. tw7
[2025-07-09 11:31] VITALS: TEMP 98.2
[2025-07-09 11:38] VITALS: BP 145/87; O2SAT 99
== END 2025-07-09 01:17 | disposition home or self-care (01) ==
LOC: ER 20:31
DX: R07.9 Chest pain, unspecified (principal); I10 Essential (primary) hypertension
CPT/HCPCS: 96361; 93005; 85025; 80048; 36415; 85379; 80076; 84484; 83880; 71045; 96375; 96374; 99285; J0360; J2470; J7030